=== PATIENT | female | born 1955 | race Caucasian/White ===

== ENCOUNTER 2016-11-05 11:17 | Inpatient (IN) | payer OTHER ==
[~2016-11-05] VITALS: Ht 170.1 cm; Wt 155.7 kg
--- NOTE | ~2016-11-05 | ST ---
[place], [place] EXERCISE STRESS TEST REPORT NAME: SANTO LOMAS [facility] #: [id number] UNIT #: [id number] ROOM: 405 DOCTOR: BETSEY GOODMAN,MARIA FERNANDA BIRTHDATE: [birth year] DOS: 11/06/2016 REASON FOR TEST: Evaluation of chest pain, palpitations. PHYSICAL EXAMINATION: NECK: Supple. LUNGS: Clear anteriorly. HEART: Regular rhythm. PROTOCOL: Lexiscan protocol. Maximum heart rate 99. Peak blood pressure 142/78. SYMPTOMS: The patient is chest pain free. EKG: Resting EKG showed her old anterior OR. Stress EKG showed no ischemia, no arrhythmias. CONCLUSION: Clinically, the patient is chest pain free. EKG, no ischemia, no arrhythmias. POST-STRESS COMPLICATIONS: None. The patient received total of 0.4 mg Lexiscan. MARIA FERNANDA LEGGETT MD CM:STRESS:EXERCISE STRESS TEST REPORT [id number] MARIA FERNANDA LEGGETT MD
[~2016-11-05 11:17] MED LIST: ANTIVERT25 MG PO; ASPIRIN BUFFER325 MG PO; ASPIRIN162 MG PO; ATIVAN0.5 MG PO; CIPROFLOXACIN500 MG PO; DARVOCET N 1001 TAB PO; GLYBURIDE5 MG PO; IBU-8800 MG PO; INDERAL LA120 MG PO; INVOKANA100 M1 PO; KLONOPIN2 MG PO; LEVOFLOXACIN500 MG PO; LOPRESSOR50 M1 PO; Lopressor25 MG PO; METFORMIN1000 MG PO; PROTONIX40 MG PO; XANAX0.25 MG PO; ZANTAC150 MG PO; ZOVIRAX400 MG PO; Zofran4 MG PO
[2016-11-05 11:33] VITALS: BP 131/56
[2016-11-05 12:03] LABS: BASO % 0.3 % (0.0-1.0); EOS # 0.1 10*3/uL (0.0-0.4); EOS % 1.2 % (1.0-4.0); HEMATOCRIT 43.7 % (37.0-47.0); HEMOGLOBIN 14.1 g/dl (12.0-16.0); LYMPH # 2.2 10*3/uL (1.3-4.4); LYMPH % 25.5 % (27.0-41.0); MEAN CELL VOLUME 93.6 fl (81.0-99.0); MEAN CORPUSCULAR HGB 30.2 pg (27.0-31.0); MEAN CORPUSCULAR HGB CONC 32.3 g/dl (33.0-37.0); MEAN PLATELET VOLUME 11.6 fl (9.6-12.3); MONO # 0.4 10*3/uL (0.1-1.0); MONO % 5.1 % (3.0-9.0); NEUT # 5.9 10*3/uL (2.3-7.9); NEUT % 67.4 % (47.0-73.0); PLATELET COUNT AUTOMATED 197 10*3/uL (130-400); RED BLOOD COUNT 4.67 10*6/uL (4.10-5.10); RED CELL DISTRI WIDTH 13.2 % (0-14.5); WHITE BLOOD COUNT 8.7 10*3/uL (4.8-10.8)
[2016-11-05 12:12] LABS: INTERNATIONAL NORM RATIO 0.9 (2.0-3.5)
[2016-11-05 12:18] VITALS: BP 115/69
[2016-11-05 12:19] LABS: ALBUMIN 3.5 gm/dl (3.1-4.5); ALKALINE PHOSPHATASE 54 U/L (45-117); BILIRUBIN, TOTAL 0.4 mg/dl (0.2-1.0); BUN 13 mg/dl (7-24); C-REACTIVE PROTEIN 0.29 MG/DL (0-0.3); CARBON DIOXIDE 28 mmol/L (21-32); CHLORIDE 107 mmol/L (98-107); CPK 45 U/L (26-192); EST GLOM FILT AFRICAN AMERICAN > 60 ml/min; GLUCOSE 263 mg/dL (65-99); MAGNESIUM 1.7 mg/dL (1.5-2.1); POTASSIUM 4.5 mmol/L (3.5-5.1); SGOT/AST 10 IU/L (3-35); SGPT/ALT 18 U/L (12-78); SODIUM 143 mmol/L (136-145); TOTAL PROTEIN 6.9 gm/dL (6.4-8.2)
[2016-11-05 12:20] LABS: TROPONIN I < 0.015 ng/ml (<0.045)
[2016-11-05] MEDS ORDERED: PLAVIX75 M1 PO (13:08)
[2016-11-05] MEDS ORDERED: LISINOPRIL5 MG PO (13:08)
[2016-11-05] MEDS ORDERED: LIPITOR40 MG PO (13:09)
[2016-11-05 13:15] VITALS: BP 138/79
[2016-11-05] MEDS ORDERED: LOPRESSOR25 MG PO (13:48)
[2016-11-05] MEDS ORDERED: CYCLOBENZAPRINE10 MG PO (13:56)
[2016-11-05 16:00] VITALS: BP 131/59
[2016-11-05 18:28] LABS: CKMB 1.3 ng/ml (0.5-3.6); CPK 36 U/L (26-192)
[2016-11-05 18:29] LABS: TROPONIN I < 0.015 ng/ml (<0.045)
[2016-11-05 20:00] VITALS: BP 115/50
[2016-11-06] VITALS: BP 122/57
[2016-11-06 00:27] LABS: CKMB 1.1 ng/ml (0.5-3.6); CPK 34 U/L (26-192)
[2016-11-06 00:37] LABS: TROPONIN I < 0.015 ng/ml (<0.045)
[2016-11-06 06:38] LABS: BASO % 0.5 % (0.0-1.0); EOS # 0.1 10*3/uL (0.0-0.4); EOS % 1.2 % (1.0-4.0); HEMATOCRIT 38.7 % (37.0-47.0); HEMOGLOBIN 12.5 g/dl (12.0-16.0); LYMPH # 2.3 10*3/uL (1.3-4.4); LYMPH % 35.9 % (27.0-41.0); MEAN CELL VOLUME 92.6 fl (81.0-99.0); MEAN CORPUSCULAR HGB 29.9 pg (27.0-31.0); MEAN CORPUSCULAR HGB CONC 32.3 g/dl (33.0-37.0); MONO # 0.4 10*3/uL (0.1-1.0); MONO % 5.7 % (3.0-9.0); NEUT # 3.7 10*3/uL (2.3-7.9); NEUT % 56.4 % (47.0-73.0); PLATELET COUNT AUTOMATED 147 10*3/uL (130-400); RED BLOOD COUNT 4.18 10*6/uL (4.10-5.10); RED CELL DISTRI WIDTH 13.2 % (0-14.5); WHITE BLOOD COUNT 6.5 10*3/uL (4.8-10.8)
[2016-11-06 06:46] LABS: CKMB 1.1 ng/ml (0.5-3.6); CPK 32 U/L (26-192)
[2016-11-06 06:59] LABS: TROPONIN I < 0.015 ng/ml (<0.045)
[2016-11-06 07:07] LABS: BUN 11 mg/dl (7-24); CARBON DIOXIDE 26 mmol/L (21-32); CHLORIDE 109 mmol/L (98-107); EST GLOM FILT AFRICAN AMERICAN > 60 ml/min; GLUCOSE 133 mg/dL (65-99); MAGNESIUM 1.7 mg/dL (1.5-2.1); POTASSIUM 4.3 mmol/L (3.5-5.1); SODIUM 144 mmol/L (136-145)
[2016-11-06 07:19] LABS: CHOLESTEROL 108 mg/dL (<200); FREE T4 1.18 ng/dl (0.76-1.46); HDL CHOLESTEROL 39 mg/dl (40-60); LDL CHOLESTEROL 43 mg/dL (9-159); PHOSPHOROUS 3.7 mg/dL (2.5-4.9); TRIGLYCERIDES 131 mg/dl (<150); VLDL CHOLESTEROL 26 mg/dL (6-40)
[2016-11-06 08:00] VITALS: BP 136/76; BP 138/78
[2016-11-06 12:00] VITALS: BP 134/78
== END 2016-11-06 15:47 | disposition home or self-care (01) | DRG 149 ==
LOC: ED 11:17 → EDHOLD 12:32 → 4E 12:32
PROVIDERS: Student in an Organized Health Care Education/Training Program
PROC: 4A02XM4 Measurement of Cardiac Total Activity, External Approach (ICD-10-PCS; principal; 2016-11-06)
PROC: 3E073KZ Introduction of Other Diagnostic Substance into Coronary Artery, Percutaneous Approach (ICD-10-PCS; 2016-11-06)
DX: R42 Dizziness and giddiness (principal); E11.65 Type 2 diabetes mellitus with hyperglycemia; I10 Essential (primary) hypertension; I25.2 Old myocardial infarction; K21.9 Gastro-esophageal reflux disease without esophagitis; R00.0 Tachycardia, unspecified; R00.2 Palpitations; I25.10 Atherosclerotic heart disease of native coronary artery without angina pectoris; Z95.5 Presence of coronary angioplasty implant and graft; Z85.828 Personal history of other malignant neoplasm of skin; Z98.891 History of uterine scar from previous surgery; Z82.49 Family history of ischemic heart disease and other diseases of the circulatory system; Z88.0 Allergy status to penicillin; Z88.1 Allergy status to other antibiotic agents; Z79.82 Long term (current) use of aspirin; Z79.899 Other long term (current) drug therapy; Z79.84 Long term (current) use of oral hypoglycemic drugs

== ENCOUNTER → 2017-02-19 | Outpatient (CLI) | payer OTHER ==
[~2017-02-19] MED LIST changes: +CYCLOBENZAPRINE10 MG PO; +LIPITOR40 MG PO; +LISINOPRIL5 MG PO; +LOPRESSOR25 MG PO; +PLAVIX75 M1 PO
[2017-02-19 12:40] LABS: BASO % 0.4 % (0.0-1.0); EOS # 0.1 10*3/uL (0.0-0.4); EOS % 1.1 % (1.0-4.0); HEMATOCRIT 36.8 % (37.0-47.0); HEMOGLOBIN 12.1 g/dl (12.0-16.0); LYMPH # 2.6 10*3/uL (1.3-4.4); MEAN CELL VOLUME 92.7 fl (81.0-99.0); MEAN CORPUSCULAR HGB 30.5 pg (27.0-31.0); MEAN CORPUSCULAR HGB CONC 32.9 g/dl (33.0-37.0); MEAN PLATELET VOLUME 12.2 fl (9.6-12.3); MONO # 0.4 10*3/uL (0.1-1.0); MONO % 5.5 % (3.0-9.0); NEUT # 3.9 10*3/uL (2.3-7.9); NEUT % 55.9 % (47.0-73.0); PLATELET COUNT AUTOMATED 169 10*3/uL (130-400); RED BLOOD COUNT 3.97 10*6/uL (4.10-5.10); RED CELL DISTRI WIDTH 12.7 % (0-14.5)
[2017-02-19 13:01] LABS: ALBUMIN 3.5 gm/dl (3.1-4.5); ALKALINE PHOSPHATASE 47 U/L (45-117); BILIRUBIN, TOTAL 0.5 mg/dl (0.2-1.0); BUN 23 mg/dl (7-24); CARBON DIOXIDE 26 mmol/L (21-32); CHLORIDE 105 mmol/L (98-107); CHOLESTEROL 110 mg/dL (<200); EST GLOM FILT AFRICAN AMERICAN > 60 ml/min; GLUCOSE 157 mg/dL (65-99); HDL CHOLESTEROL 36 mg/dl (40-60); LDL CHOLESTEROL 41 mg/dL (9-159); POTASSIUM 4.4 mmol/L (3.5-5.1); SGOT/AST 13 IU/L (3-35); SGPT/ALT 20 U/L (12-78); SODIUM 141 mmol/L (136-145); TOTAL PROTEIN 6.7 gm/dL (6.4-8.2); TRIGLYCERIDES 163 mg/dl (<150); VLDL CHOLESTEROL 33 mg/dL (6-40)
== END | disposition home or self-care (01) ==
LOC: LAB 11:51
PROVIDERS: Internal Medicine
DX: E11.9 Type 2 diabetes mellitus without complications (principal); E78.2 Mixed hyperlipidemia; R79.89 Other specified abnormal findings of blood chemistry

== ENCOUNTER 2017-03-13 18:08 | Inpatient (IN) | payer OTHER ==
[~2017-03-13] VITALS: Ht 167.6 cm; Wt 162.1 kg
--- NOTE | ~2017-03-13 | CON ---
[place], [place] REPORT OF CONSULTATION NAME: SANTO LOMAS [facility] #: [id number] UNIT #: [id number] ROOM: 507 DOCTOR: ORIN CHAMORRO MD BIRTHDATE: [birth year] DOS: 03/14/2017 REASON FOR CONSULTATION: Chest pain. HISTORY OF PRESENT ILLNESS: The patient is a 61-year-old woman who does have a history of coronary artery disease. She presented with atypical back pain and weakness in May 2017. She was found to have an acute ST elevation anterior wall myocardial infarction. She was taken to the catheterization laboratory on 05/25/2016, where she was found to have a 20% distal left main stenosis, a 50% ostial LAD stenosis, followed by 90% mid LAD stenosis. The circumflex had moderate ostial disease. The right coronary artery was a dominant vessel with moderate diffuse disease. The ejection fraction was 45% with anteroapical hypokinesis. The LAD was treated with a 3.0 x 33 mm Alpine drug-eluting stent. The patient presented again to the hospital in October 2016 with palpitations. A Lexiscan stress test at that time showed an ejection fraction of 65% with a partially reversible anterior and anteroseptal defect. The patient was felt to be best treated medically. She did well until recently. She states that there was some mix up with her medications at the pharmacy. She receives her medications in prepackaged blister packs. She states that several of the packages were missing, isosorbide mononitrate. In addition, she is a professional crafter. She was receiving a lot of orders for [employer] and was working 12 hours a day for several weeks hunched over a [employer] table creating these projects. She states that 3 days ago, while lying in bed, she developed an aching sensation in the center of her chest, in the middle of her back. There was no associated diaphoresis or shortness of breath at that time; however, subsequently she has felt lightheaded and has had some dyspnea off and on. She became frightened and came to the Emergency Room. Her electrocardiogram showed no acute changes and her cardiac troponin levels are normal. We were asked to advice regarding her management. PAST MEDICAL HISTORY: Includes the followin. Obesity. 2. Type 2 diabetes mellitus. 3. Essential hypertension. 4. Gastroesophageal reflux disease. 5. 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 The patient states that a wide excision was done and she does not have any measurable disease at this time. She is being followed closely for this. 6. The patient recently was documented as having B12 deficiency anemia and has been receiving B12 replacement lately. 7. Coronary artery disease. The patient presented with acute anterior wall myocardial infarction on 05/25/2016. She was taken emergently to the [facility] where catheterization showed a 20% distal left main stenosis, a 50% ostial LAD stenosis with a 90% mid LAD stenosis. Circumflex had moderate ostial disease. The right coronary artery was a dominant vessel with moderate diffuse disease and a 45% ejection fraction with anteroapical hypokinesis. She was managed with a 3.0 x 33 mm Alpine drug-eluting stent to the LAD. 8. Pharmacologic stress test, 11/06/2016, ejection fraction 65%, partially [place], [place] REPORT OF CONSULTATION [facility] [id number] UNIT #: [id number] ROOM: 507 DOCTOR: ORIN CHAMORRO MD BIRTHDATE: [birth year] reversible defect in the anterior and anteroseptal magana. REVIEW OF SYSTEMS: The patient denies diplopia or loss of vision. She denies focal weakness or syncope. She has had some mild lightheadedness. She denies orthopnea or PND. She has noticed a recent 5-10 pound weight gain and she states that her hands and feet have been "puffy." She denies nausea or vomiting. She has had some dyspnea. She has had some lightheadedness. She denies any vomiting or hemoptysis. She has not had any hematemesis. She denies any change in bowel or bladder habits and denies blood from her stools or urine. She has had some mild swelling in her hands and feet. The remainder of the review of systems is negative except as noted above. MEDICATIONS: Prior to admission: Aspirin 325 mg daily, Lipitor 40 mg at bedtime, cetirizine 10 mg at bedtime, clonazepam 0.5 mg b.i.d., clopidogrel 75 mg daily, cyclobenzaprine 10 mg t.i.d., glyburide 5 mg daily, hydrochlorothiazide 12.5 mg daily, isosorbide mononitrate 30 mg daily, losartan 100 mg daily, metformin 1000 mg twice a day, metoprolol 25 daily and 50 mg b.i.d. ALLERGIES: The patient lists allergies to PENICILLINS, CLARITHROMYCIN and LEVOFLOXACIN. FAMILY HISTORY: The patient's father at age 78 from heart attack. Her mother has a history of coronary artery disease as well and had a stent in her 60s. She is also . SOCIAL HISTORY: The patient does not smoke or consume alcohol. PHYSICAL EXAMINATION: GENERAL: The patient is an obese white female who is awake, alert and oriented. VITAL SIGNS: Pulse is 57 and regular, blood pressure is 134/54. She is afebrile. She weighs 162.1 kilograms with a body mass index of 57.7. HEENT: Normocephalic, atraumatic. Extraocular muscles are intact. Sclerae are clear. Pupils are equal, round and reactive to light. The oral mucosa is moist. Tongue is midline. NECK: Supple. She has no jugular distention. Carotids are full. I heard no bruits. She had no neck or supraclavicular masses. No thyromegaly. LUNGS: Respirations are unlabored. Her chest is clear to auscultation and percussion. She had no presacral edema or chest wall tenderness. HEART: Had a regular rhythm. She had a fourth heart sound, but no third heart sound. The PMI was not displaced. She had no precordial heave, lift or thrill. ABDOMEN: Obese, but otherwise benign, without masses, organomegaly or bruits. I was able to reproduce some of her pains by palpation of her epigastrium and lower sternum. EXTREMITIES: Showed no clubbing, cyanosis or pitting edema. Peripheral pulses were diminished, but palpable in the feet. LABORATORY DATA: Electrocardiogram on admission showed sinus rhythm with an old anterior wall myocardial infarction. Serial troponin levels have been normal. [place], [place] REPORT OF CONSULTATION [facility] [id number] UNIT #: [id number] ROOM: 507 DOCTOR: ORIN CHAMORRO MD BIRTHDATE: [birth year] IMPRESSION: 1. Atypical chest pain. It is most likely that her current pains are musculoskeletal in origin and are brought on by repetitive strain injury while she is doing her crafting. 2. History of coronary artery disease, status post acute ST elevation myocardial infarction, 05/25/2016. The patient does have some residual disease, which complicates our assessment of her current pains. 3. Type 2 diabetes mellitus. 4. Essential hypertension. 5. Morbid obesity. 6. History of B12 deficient anemia. 7. History of melanoma resected from her right calf. PLAN: Her current symptoms appear to be musculoskeletal in origin. I would resume her previous medications and continue to observe her clinically. Should her pains persist and see more exertional in origin, then a repeat catheterization would be appropriate. Repeating her stress test at this time would not be very beneficial since she recently did have a stress test that does shows some areas of ischemia, which we are managing medically thus far. [facility] and I thank the hospitalist physicians for asking our advice regarding her care. ORIN CHAMORRO MD CM:CONSTR:REPORT OF CONSULTATION 1024 03/15/17 0033 interface
[2017-03-13 18:27] LABS: BASO % 0.5 % (0.0-1.0); EOS # 0.2 10*3/uL (0.0-0.4); HEMATOCRIT 36.7 % (37.0-47.0); HEMOGLOBIN 11.8 g/dl (12.0-16.0); LYMPH # 2.6 10*3/uL (1.3-4.4); LYMPH % 34.6 % (27.0-41.0); MEAN CELL VOLUME 93.9 fl (81.0-99.0); MEAN CORPUSCULAR HGB 30.2 pg (27.0-31.0); MEAN CORPUSCULAR HGB CONC 32.2 g/dl (33.0-37.0); MEAN PLATELET VOLUME 11.7 fl (9.6-12.3); MONO # 0.5 10*3/uL (0.1-1.0); MONO % 6.6 % (3.0-9.0); NEUT # 4.3 10*3/uL (2.3-7.9); NEUT % 55.9 % (47.0-73.0); PLATELET COUNT AUTOMATED 176 10*3/uL (130-400); RED BLOOD COUNT 3.91 10*6/uL (4.10-5.10); RED CELL DISTRI WIDTH 12.9 % (0-14.5); WHITE BLOOD COUNT 7.6 10*3/uL (4.8-10.8)
[2017-03-13 18:29] VITALS: BP 130/50
[2017-03-13 18:37] LABS: ACT PARTIAL THROMBO TIME 25.9 SECONDS (20.8-31.5); INTERNATIONAL NORM RATIO 0.9 (2.0-3.5)
[2017-03-13 18:43] LABS: ALBUMIN 3.5 gm/dl (3.1-4.5); ALKALINE PHOSPHATASE 58 U/L (45-117); BUN 13 mg/dl (7-24); CHLORIDE 107 mmol/L (98-107); CREATININE 0.94 mg/dL (0.55-1.02); MAGNESIUM 1.8 mg/dL (1.5-2.1); POTASSIUM 4.3 mmol/L (3.5-5.1); SGOT/AST 16 IU/L (3-35); SGPT/ALT 21 U/L (12-78); SODIUM 142 mmol/L (136-145)
[2017-03-13 18:44] LABS: TROPONIN I < 0.015 ng/ml (<0.045)
[2017-03-13 19:03] VITALS: BP 112/60
[2017-03-13 20:45] VITALS: BP 127/50
[2017-03-13] MEDS ORDERED: IMDUR SA30 MG PO (21:02)
[2017-03-13] MEDS ORDERED: CLONAZEPAM0.5 M2 PO (21:02)
[2017-03-13] MEDS ORDERED: LOSARTAN POTASS50 M1 PO (21:02)
[2017-03-13] MEDS ORDERED: ALL DAY ALLERGY10 MG PO (21:03)
[2017-03-13] MEDS ORDERED: HYDR25T PO (21:04)
[2017-03-14] VITALS: BP 137/45
[2017-03-14 06:11] LABS: BASO % 0.5 % (0.0-1.0); EOS # 0.1 10*3/uL (0.0-0.4); EOS % 1.8 % (1.0-4.0); HEMATOCRIT 34.5 % (37.0-47.0); HEMOGLOBIN 11.2 g/dl (12.0-16.0); LYMPH # 2.7 10*3/uL (1.3-4.4); LYMPH % 42.4 % (27.0-41.0); MEAN CELL VOLUME 93.5 fl (81.0-99.0); MEAN CORPUSCULAR HGB 30.4 pg (27.0-31.0); MEAN CORPUSCULAR HGB CONC 32.5 g/dl (33.0-37.0); MEAN PLATELET VOLUME 11.8 fl (9.6-12.3); MONO # 0.4 10*3/uL (0.1-1.0); MONO % 5.6 % (3.0-9.0); NEUT # 3.1 10*3/uL (2.3-7.9); NEUT % 49.5 % (47.0-73.0); PLATELET COUNT AUTOMATED 142 10*3/uL (130-400); RED BLOOD COUNT 3.69 10*6/uL (4.10-5.10); RED CELL DISTRI WIDTH 12.9 % (0-14.5); WHITE BLOOD COUNT 6.3 10*3/uL (4.8-10.8)
[2017-03-14 06:39] LABS: BUN 13 mg/dl (7-24); CHLORIDE 111 mmol/L (98-107); MAGNESIUM 1.7 mg/dL (1.5-2.1); POTASSIUM 3.9 mmol/L (3.5-5.1); SODIUM 144 mmol/L (136-145)
[2017-03-14 06:42] LABS: ACT PARTIAL THROMBO TIME 26.7 SECONDS (20.8-31.5)
[2017-03-14 06:50] LABS: CREATININE 0.86 mg/dL (0.55-1.02); PHOSPHOROUS 3.4 mg/dL (2.5-4.9)
[2017-03-14 07:39] LABS: VITAMIN D, 25-HYDROXY 14.9 ng/mL (30-100)
[2017-03-14 08:00] VITALS: BP 134/54
[2017-03-14] MEDS ORDERED: VITAMIN D31000 UNI1 PO (11:30)
[2017-03-14 12:00] VITALS: BP 129/68
== END 2017-03-14 12:00 | disposition home or self-care (01) | DRG 313 ==
LOC: ED 18:08 → 5E 20:07 → EDHOLD 20:07 → 5E 20:14
PROVIDERS: Internal Medicine; ADMIT Emergency Medicine
DX: R07.89 Other chest pain (principal); I25.2 Old myocardial infarction; E11.65 Type 2 diabetes mellitus with hyperglycemia; I10 Essential (primary) hypertension; E44.1 Mild protein-calorie malnutrition; Z68.43 Body mass index [BMI] 50.0-59.9, adult; I25.118 Atherosclerotic heart disease of native coronary artery with other forms of angina pectoris; K21.9 Gastro-esophageal reflux disease without esophagitis; D64.9 Anemia, unspecified; E55.9 Vitamin D deficiency, unspecified; E66.01 Morbid (severe) obesity due to excess calories; Z95.5 Presence of coronary angioplasty implant and graft; Z85.820 Personal history of malignant melanoma of skin; Z79.4 Long term (current) use of insulin; Z79.899 Other long term (current) drug therapy; Z88.0 Allergy status to penicillin; Z88.1 Allergy status to other antibiotic agents; Z82.49 Family history of ischemic heart disease and other diseases of the circulatory system

== ENCOUNTER 2017-12-07 19:10 | Emergency (ER) | payer OTHER ==
[~2017-12-07] VITALS: Ht 170.1 cm; Wt 158.8 kg
[~2017-12-07 19:10] MED LIST changes: +ALL DAY ALLERGY10 MG PO; +CLONAZEPAM0.5 M2 PO; +HYDR25T PO; +IMDUR SA30 MG PO; +LOSARTAN POTASS50 M1 PO; +VITAMIN D31000 UNI1 PO
[2017-12-07 19:50] LABS: BASO % 0.6 % (0.0-1.0); EOS # 0.2 10*3/uL (0.0-0.4); EOS % 2.5 % (1.0-4.0); HEMATOCRIT 37.3 % (37.0-47.0); HEMOGLOBIN 12.1 g/dl (12.0-16.0); LYMPH # 2.3 10*3/uL (1.3-4.4); LYMPH % 32.2 % (27.0-41.0); MEAN CELL VOLUME 93.5 fl (81.0-99.0); MEAN CORPUSCULAR HGB 30.3 pg (27.0-31.0); MEAN CORPUSCULAR HGB CONC 32.4 g/dl (33.0-37.0); MONO # 0.5 10*3/uL (0.1-1.0); MONO % 6.4 % (3.0-9.0); NEUT # 4.1 10*3/uL (2.3-7.9); PLATELET COUNT AUTOMATED 182 10*3/uL (130-400); RED BLOOD COUNT 3.99 10*6/uL (4.10-5.10); RED CELL DISTRI WIDTH 12.9 % (0-14.5); WHITE BLOOD COUNT 7.1 10*3/uL (4.8-10.8)
[2017-12-07 20:01] LABS: ACT PARTIAL THROMBO TIME 24.6 SECONDS (20.8-31.5)
[2017-12-07 20:04] LABS: ALBUMIN 3.6 gm/dl (3.1-4.5); ALKALINE PHOSPHATASE 50 U/L (45-117); BUN 17 mg/dl (7-24); CHLORIDE 105 mmol/L (98-107); CREATININE 1.23 mg/dL (0.55-1.02); LIPASE 117 U/L (73-393); POTASSIUM 4.3 mmol/L (3.5-5.1); SGOT/AST 26 IU/L (3-35); SGPT/ALT 31 U/L (12-78); SODIUM 141 mmol/L (136-145); TOTAL PROTEIN 6.8 gm/dL (6.4-8.2); TROPONIN I < 0.015 ng/ml (<0.045)
[2017-12-07 20:08] LABS: BILIRUBIN NEGATIVE (NEGATIVE); BLOOD NEGATIVE (NEGATIVE); CLARITY CLEAR (CLEAR); COLOR YELLOW (YELLOW); GLUCOSE NEGATIVE (NEGATIVE); KETONE TRACE (NEGATIVE); LEUKO ESTERASE NEGATIVE (NEGATIVE); NITRITE NEGATIVE (NEGATIVE); PH 5.5 (5.0-9.0); UROBILINOGEN 0.2 E.U./dl (0.2-1.0)
[2017-12-07 20:20] LABS: BACTERIA 2+; MUCOUS 1+
[2017-12-07 20:21] LABS: EPITHELIAL CELLS 41-50
[2017-12-07] MEDS ORDERED: CYCLOBENZAPRINE5 M3 PO (20:44)
== END 2017-12-07 20:49 | disposition home or self-care (01) ==
LOC: ED 19:10
PROVIDERS: Nurse Practitioner Family
DX: S29.012A Strain of muscle and tendon of back wall of thorax, initial encounter (principal); I10 Essential (primary) hypertension; E11.9 Type 2 diabetes mellitus without complications; K21.9 Gastro-esophageal reflux disease without esophagitis; I25.10 Atherosclerotic heart disease of native coronary artery without angina pectoris; I25.2 Old myocardial infarction; E66.01 Morbid (severe) obesity due to excess calories; Z88.1 Allergy status to other antibiotic agents; Z68.43 Body mass index [BMI] 50.0-59.9, adult; Z88.8 Allergy status to other drugs, medicaments and biological substances; Z98.51 Tubal ligation status; Z98.890 Other specified postprocedural states; Z88.0 Allergy status to penicillin; Z79.899 Other long term (current) drug therapy; X58.XXXA Exposure to other specified factors, initial encounter; Y93.89 Activity, other specified; Y92.89 Other specified places as the place of occurrence of the external cause; Y99.8 Other external cause status

== ENCOUNTER → 2018-02-04 | Outpatient (CLI) | payer OTHER ==
[~2018-02-04] MED LIST changes: +CYCLOBENZAPRINE5 M3 PO; +PEPCID AC20 MG PO; +ROBAXIN500 M1 PO; +VIT D PO
[2018-02-04 10:34] LABS: BASO % 0.4 % (0.0-1.0); EOS # 0.1 10*3/uL (0.0-0.4); EOS % 1.9 % (1.0-4.0); HEMATOCRIT 37.8 % (37.0-47.0); HEMOGLOBIN 12.1 g/dl (12.0-16.0); LYMPH # 2.4 10*3/uL (1.3-4.4); LYMPH % 33.3 % (27.0-41.0); MEAN CELL VOLUME 94.3 fl (81.0-99.0); MEAN CORPUSCULAR HGB 30.2 pg (27.0-31.0); MEAN PLATELET VOLUME 11.9 fl (9.6-12.3); MONO # 0.4 10*3/uL (0.1-1.0); MONO % 5.8 % (3.0-9.0); NEUT # 4.2 10*3/uL (2.3-7.9); NEUT % 58.3 % (47.0-73.0); PLATELET COUNT AUTOMATED 174 10*3/uL (130-400); RED BLOOD COUNT 4.01 10*6/uL (4.10-5.10); RED CELL DISTRI WIDTH 13.2 % (0-14.5); WHITE BLOOD COUNT 7.2 10*3/uL (4.8-10.8)
[2018-02-04 10:49] LABS: ALBUMIN 3.6 gm/dl (3.1-4.5); CREATININE 1.29 mg/dL (0.55-1.02); POTASSIUM 4.3 mmol/L (3.5-5.1); TOTAL PROTEIN 6.9 gm/dL (6.4-8.2)
[2018-02-04 10:56] LABS: THYROID STIM HORMONE (HS) 3.16 uIU/ml (0.358-4.75)
[2018-02-04 11:22] LABS: VITAMIN D, 25-HYDROXY 33.3 ng/mL (30-100)
== END | disposition home or self-care (01) ==
LOC: LAB 09:59
PROVIDERS: Internal Medicine
DX: E11.9 Type 2 diabetes mellitus without complications (principal); E55.9 Vitamin D deficiency, unspecified; E78.2 Mixed hyperlipidemia; E53.8 Deficiency of other specified B group vitamins

== ENCOUNTER 2018-02-08 17:12 | Emergency (ER) | payer OTHER ==
[~2018-02-08] VITALS: Ht 170.1 cm; Wt 162.4 kg
[~2018-02-08 17:12] MED LIST changes: -PEPCID AC20 MG PO; -ROBAXIN500 M1 PO; -VIT D PO
[2018-02-08 17:44] LABS: BASO % 0.4 % (0.0-1.0); EOS # 0.2 10*3/uL (0.0-0.4); EOS % 2.1 % (1.0-4.0); HEMATOCRIT 37.3 % (37.0-47.0); HEMOGLOBIN 12.2 g/dl (12.0-16.0); LYMPH # 2.8 10*3/uL (1.3-4.4); LYMPH % 33.5 % (27.0-41.0); MEAN CORPUSCULAR HGB 30.4 pg (27.0-31.0); MEAN CORPUSCULAR HGB CONC 32.7 g/dl (33.0-37.0); MEAN PLATELET VOLUME 11.7 fl (9.6-12.3); MONO # 0.5 10*3/uL (0.1-1.0); MONO % 6.3 % (3.0-9.0); NEUT # 4.7 10*3/uL (2.3-7.9); NEUT % 57.5 % (47.0-73.0); PLATELET COUNT AUTOMATED 190 10*3/uL (130-400); RED BLOOD COUNT 4.01 10*6/uL (4.10-5.10); RED CELL DISTRI WIDTH 13.1 % (0-14.5); WHITE BLOOD COUNT 8.2 10*3/uL (4.8-10.8)
[2018-02-08 17:56] LABS: ACT PARTIAL THROMBO TIME 24.5 SECONDS (20.8-31.5); CREATININE 1.46 mg/dL (0.55-1.02); POTASSIUM 3.9 mmol/L (3.5-5.1)
[2018-02-08] MEDS ORDERED: ROBAXIN500 M1 PO (19:16)
[2018-02-11] MEDS ORDERED: PEPCID AC20 MG PO (14:31)
[2018-02-11] MEDS ORDERED: VIT D PO (14:32)
== END 2018-02-08 19:30 | disposition home or self-care (01) ==
LOC: ED 17:12
PROVIDERS: Physician Assistant
DX: M79.662 Pain in left lower leg (principal); R06.00 Dyspnea, unspecified; E11.9 Type 2 diabetes mellitus without complications; Z88.0 Allergy status to penicillin; Z88.1 Allergy status to other antibiotic agents; Z88.8 Allergy status to other drugs, medicaments and biological substances; Z79.899 Other long term (current) drug therapy

== ENCOUNTER → 2018-02-11 | Outpatient (CLI) | payer OTHER ==
[~2018-02-11] MED LIST changes: +PEPCID AC20 MG PO; +ROBAXIN500 M1 PO; +VIT D PO
--- NOTE | ~2018-02-11 | ST ---
[place], [place] EXERCISE STRESS TEST REPORT NAME: SANTO LOMAS [facility] #: [id number] UNIT #: [id number] ROOM: DOCTOR: ORIN CHAMORRO MD BIRTHDATE: [birth year] DOS: 02/11/2018 PHARMACOLOGIC STRESS TEST INDICATIONS: History of coronary artery disease, fatigue, dyspnea with exertion. PROCEDURE: The patient received a rapid infusion of regadenoson 0.4 mg intravenously followed by a saline flush. She felt lightheaded and dyspneic, but had no chest pain. Her resting heart rate of 92 dimitri to 111. The resting blood pressure 134/78 dimitri to 144/66. She had no diagnostic ST and T or T-wave changes, although she did have nonspecific T-wave changes before the beginning of the test. Forty seconds after the infusion of regadenoson, she was given radionuclide intravenously. IMPRESSION: 1. Well-tolerated infusion of regadenoson. 2. Radionuclide administered. Please see the separate imaging report for further details of the patient's stress test results. ORIN CHAMORRO MD CM:STRESS:EXERCISE STRESS TEST REPORT [id number] [id number] ORIN CHAMORRO MD
== END | disposition home or self-care (01) ==
LOC: CARD 02:43
DX: I21.02 ST elevation (STEMI) myocardial infarction involving left anterior descending coronary artery (principal); R06.09 Other forms of dyspnea; R07.89 Other chest pain; R53.81 Other malaise; R94.39 Abnormal result of other cardiovascular function study; I25.10 Atherosclerotic heart disease of native coronary artery without angina pectoris

== ENCOUNTER → 2018-02-25 | Outpatient (CLI) | payer OTHER | END | disposition home or self-care (01) | LOC: MAMMO 09:49 | DX: Z12.31 Encounter for screening mammogram for malignant neoplasm of breast (principal) ==

== ENCOUNTER → 2018-02-26 | Outpatient (CLI) | payer OTHER | END | disposition home or self-care (01) | LOC: MAMMO 12:48 | DX: R92.8 Other abnormal and inconclusive findings on diagnostic imaging of breast (principal) ==

== ENCOUNTER 2018-03-31 19:58 | Inpatient (IN) | payer OTHER ==
[~2018-03-31] VITALS: Ht 170.1 cm; Wt 163.0 kg
--- NOTE | ~2018-03-31 | EKG ---
[place], [place] ELECTROCARDIOGRAM REPORT NAME: SANTO LOMAS UNIT #: [id number] ROOM: 506 DOCTOR: EDDY DRAFT REPORT BIRTHDATE: [birth year] [facility] Test Date: 2018-03-31 Test Time: 20:24:09 Pat Name: SANTO LOMAS Department: Room: 506 Gender: F Glass Inspector: : 1955 Requested By: ANEL OLIVERA Order Number: [id number] Reading MD: Dominique Khan MD Measurements Intervals [place] Rate: 87 P: 6 IA: 191 QRS: -17 QRSD: 83 T: -5 QT: 358 QTc: 431 Interpretive Statements Sinus rhythm Left ventricular hypertrophy Inferior infarct, old Anterior infarct, old Baseline wander in lead(s) V4 Electronically Signed On 04-01-2018 13:44:56 PDT by Dominique Khan MD CM:EKGRPT:ELECTROCARDIOGRAM REPORT 23 1344 ANEL DAVIS DRAFT REPORT ANEL OLIVERA DO
--- NOTE | ~2018-03-31 | EKG ---
[place], [place] ELECTROCARDIOGRAM REPORT NAME: SANTO LOMAS UNIT #: [id number] ROOM: 506 DOCTOR: EDDY DRAFT REPORT BIRTHDATE: [birth year] [facility] Test Date: 2018-04-01 Test Time: 01:47:37 Pat Name: SANTO LOMAS Department: Room: 506 Gender: F Test Desk Trouble Locator: BALDEMAR : 1955 Requested By: ANEL OLIVERA Order Number: [id number] Reading MD: Dominique Khan MD Measurements Intervals [place] Rate: 88 P: 0 LA: 221 QRS: -2 QRSD: 90 T: -4 QT: 392 QTc: 475 Interpretive Statements Sinus rhythm Borderline prolonged [place] interval Anterior infarct, old Baseline wander in lead(s) I,III,aVL,V1,V2,V3,V4,V5,V6 Electronically Signed On 04-01-2018 13:59:09 PDT by Dominique Khan MD CM:EKGRPT:ELECTROCARDIOGRAM REPORT [id number] 1359 ANEL DAVIS DRAFT REPORT ANEL OLIVERA DO
--- NOTE | ~2018-03-31 | EKG ---
[place], [place] ELECTROCARDIOGRAM REPORT NAME: SANTO LOMAS UNIT #: [id number] ROOM: 506 DOCTOR: EDDY DRAFT REPORT BIRTHDATE: [birth year] [facility] Test Date: 2018-03-31 Test Time: 23:05:14 Pat Name: SANTO LOMAS Department: Room: 506 Gender: F Government Relations Analyst: BALDEMAR : 1955 Requested By: ANEL OLIVERA Order Number: [id number] Reading MD: Dominique Khan MD Measurements Intervals [place] Rate: 78 P: 11 DC: 198 QRS: 2 QRSD: 92 T: -13 QT: 383 QTc: 437 Interpretive Statements Sinus rhythm Anterior infarct, old Borderline T abnormalities, inferior leads Electronically Signed On 04-01-2018 13:57:06 PDT by Dominique Khan MD CM:EKGRPT:ELECTROCARDIOGRAM REPORT 1357 ANEL DAVIS DRAFT REPORT ANEL OLIVERA DO
[~2018-03-31 19:58] MED LIST changes: +GLUCOPHAGE1000 MG PO; -METFORMIN1000 MG PO
[2018-03-31 20:03] VITALS: BP 128/80
[2018-03-31] MEDS ORDERED: CRESTOR40 M1 PO (20:28)
[2018-03-31] MEDS ORDERED: ALOGLIPTIN25 MG PO (20:29)
[2018-03-31 20:35] VITALS: BP 144/69
[2018-03-31 20:38] LABS: BASO % 0.3 % (0.0-1.0); EOS # 0.1 10*3/uL (0.0-0.4); EOS % 1.1 % (1.0-4.0); HEMATOCRIT 38.1 % (37.0-47.0); HEMOGLOBIN 12.6 g/dl (12.0-16.0); LYMPH # 2.7 10*3/uL (1.3-4.4); LYMPH % 28.7 % (27.0-41.0); MEAN CELL VOLUME 93.4 fl (81.0-99.0); MEAN CORPUSCULAR HGB 30.9 pg (27.0-31.0); MEAN CORPUSCULAR HGB CONC 33.1 g/dl (33.0-37.0); MEAN PLATELET VOLUME 12.1 fl (9.6-12.3); MONO # 0.5 10*3/uL (0.1-1.0); MONO % 5.2 % (3.0-9.0); NEUT # 5.9 10*3/uL (2.3-7.9); NEUT % 64.3 % (47.0-73.0); PLATELET COUNT AUTOMATED 188 10*3/uL (130-400); RED BLOOD COUNT 4.08 10*6/uL (4.10-5.10); RED CELL DISTRI WIDTH 12.7 % (0-14.5); WHITE BLOOD COUNT 9.2 10*3/uL (4.8-10.8)
[2018-03-31 20:56] LABS: ALBUMIN 3.9 gm/dl (3.1-4.5); ALKALINE PHOSPHATASE 41 U/L (45-117); BUN 18 mg/dl (7-24); CHLORIDE 107 mmol/L (98-107); CREATININE 1.38 mg/dL (0.55-1.02); POTASSIUM 4.5 mmol/L (3.5-5.1); SGOT/AST 19 IU/L (3-35); SGPT/ALT 20 U/L (12-78); SODIUM 141 mmol/L (136-145); TOTAL PROTEIN 7.6 gm/dL (6.4-8.2)
[2018-03-31 21:00] LABS: ACT PARTIAL THROMBO TIME 24.6 SECONDS (20.8-31.5)
[2018-03-31 21:01] LABS: TROPONIN I < 0.015 ng/ml (<0.045)
[2018-03-31 21:07] VITALS: BP 135/73
[2018-03-31] MEDS ORDERED: ECPIRIN325 MG PO (21:09)
[2018-03-31 21:41] VITALS: BP 148/73
[2018-03-31 22:00] VITALS: BP 140/54
[2018-03-31] MEDS ORDERED: VITAMIN D5000 UNI1 PO (22:47)
[2018-04-01 06:42] LABS: BASO % 0.4 % (0.0-1.0); EOS # 0.1 10*3/uL (0.0-0.4); EOS % 1.4 % (1.0-4.0); HEMATOCRIT 33.2 % (37.0-47.0); HEMOGLOBIN 10.6 g/dl (12.0-16.0); LYMPH # 3.4 10*3/uL (1.3-4.4); LYMPH % 42.7 % (27.0-41.0); MEAN CELL VOLUME 95.4 fl (81.0-99.0); MEAN CORPUSCULAR HGB 30.5 pg (27.0-31.0); MEAN CORPUSCULAR HGB CONC 31.9 g/dl (33.0-37.0); MEAN PLATELET VOLUME 11.9 fl (9.6-12.3); MONO # 0.4 10*3/uL (0.1-1.0); MONO % 5.4 % (3.0-9.0); NEUT % 49.8 % (47.0-73.0); PLATELET COUNT AUTOMATED 155 10*3/uL (130-400); RED BLOOD COUNT 3.48 10*6/uL (4.10-5.10); RED CELL DISTRI WIDTH 13.1 % (0-14.5)
[2018-04-01 07:08] LABS: ALBUMIN 3.3 gm/dl (3.1-4.5); CREATININE 1.18 mg/dL (0.55-1.02); PHOSPHOROUS 3.5 mg/dL (2.5-4.9); POTASSIUM 4.1 mmol/L (3.5-5.1)
[2018-04-01 07:09] LABS: TOTAL PROTEIN 6.2 gm/dL (6.4-8.2)
[2018-04-01 08:00] VITALS: BP 133/46
[2018-04-01 08:00] LABS: VITAMIN D, 25-HYDROXY 38.9 ng/mL (30-100)
[2018-04-01 12:00] VITALS: BP 125/64
[2018-04-01 16:00] VITALS: BP 123/39
[2018-04-01] MEDS ORDERED: INVOKANA100 M1 PO (16:35)
[2018-04-01 20:00] VITALS: BP 123/50
[2018-04-02] VITALS: BP 159/79
== END 2018-04-02 05:18 | disposition other institution (70) | DRG 683 ==
LOC: ED 19:58 → EDHOLD 21:24 → 5E 21:24
PROVIDERS: Family Medicine; Student in an Organized Health Care Education/Training Program
DX: N17.0 Acute kidney failure with tubular necrosis (principal); E44.1 Mild protein-calorie malnutrition; E87.2 Acidosis; Z68.43 Body mass index [BMI] 50.0-59.9, adult; R42 Dizziness and giddiness; R07.9 Chest pain, unspecified; M79.602 Pain in left arm; E11.65 Type 2 diabetes mellitus with hyperglycemia; I25.10 Atherosclerotic heart disease of native coronary artery without angina pectoris; E66.01 Morbid (severe) obesity due to excess calories; N18.3 Chronic kidney disease, stage 3 (moderate); E83.42 Hypomagnesemia; K21.9 Gastro-esophageal reflux disease without esophagitis; E11.22 Type 2 diabetes mellitus with diabetic chronic kidney disease; I12.9 Hypertensive chronic kidney disease with stage 1 through stage 4 chronic kidney disease, or unspecified chronic kidney disease; Z88.8 Allergy status to other drugs, medicaments and biological substances; Z79.899 Other long term (current) drug therapy; Z79.82 Long term (current) use of aspirin; I25.2 Old myocardial infarction; Z88.1 Allergy status to other antibiotic agents; Z88.0 Allergy status to penicillin; Z85.828 Personal history of other malignant neoplasm of skin; Z98.891 History of uterine scar from previous surgery; Z98.51 Tubal ligation status; Z82.3 Family history of stroke; Z82.49 Family history of ischemic heart disease and other diseases of the circulatory system; Z83.3 Family history of diabetes mellitus; Z82.0 Family history of epilepsy and other diseases of the nervous system; Z79.84 Long term (current) use of oral hypoglycemic drugs; Z95.5 Presence of coronary angioplasty implant and graft

== ENCOUNTER 2018-05-05 15:12 | Inpatient (IN) | payer OTHER ==
[~2018-05-05] VITALS: Ht 170.1 cm; Wt 156.5 kg
--- NOTE | ~2018-05-05 | EKG ---
[place], [place] ELECTROCARDIOGRAM REPORT NAME: SANTO LOMAS UNIT #: [id number] ROOM: DOCTOR: EPIPHANY DRAFT REPORT BIRTHDATE: [birth year] [facility] Test Date: 2018-05-05 Test Time: 16:09:53 Pat Name: SANTO LOMAS Department: Room: Gender: F Party Host/Hostess: : 1955 Requested By: NOMI LEON DNP Order Number: [id number] Reading MD: Measurements Intervals [place] Rate: 85 P: -6 [place]: 71 QRS: -10 QRSD: 101 T: -31 QT: 424 QTc: 505 Interpretive Statements Sinus rhythm Short [place] interval Inferior infarct, old Probable anterior infarct, age indeterminate Prolonged QT interval Compared to ECG 04/01/2018 01:47:37 Short [place] interval now present Prolonged QT interval now present Myocardial infarct finding still present CM:EKGRPT:ELECTROCARDIOGRAM REPORT 1609 1311 NOMI LEON DNP EPIPHANY DRAFT REPORT NOMI LEON DNP
[~2018-05-05 15:12] MED LIST changes: +ALOGLIPTIN25 MG PO; +CRESTOR40 M1 PO; +ECPIRIN325 MG PO; +VITAMIN D5000 UNI1 PO
[2018-05-05 15:13] VITALS: BP 95/51
[2018-05-05 16:11] LABS: BASO % 0.4 % (0.0-1.0); EOS # 0.2 10*3/uL (0.0-0.4); EOS % 2.8 % (1.0-4.0); HEMATOCRIT 37.6 % (37.0-47.0); HEMOGLOBIN 12.5 g/dl (12.0-16.0); LYMPH # 2.1 10*3/uL (1.3-4.4); LYMPH % 29.1 % (27.0-41.0); MEAN CELL VOLUME 93.8 fl (81.0-99.0); MEAN CORPUSCULAR HGB 31.2 pg (27.0-31.0); MEAN CORPUSCULAR HGB CONC 33.2 g/dl (33.0-37.0); MONO # 0.5 10*3/uL (0.1-1.0); MONO % 6.9 % (3.0-9.0); NEUT # 4.3 10*3/uL (2.3-7.9); NEUT % 60.5 % (47.0-73.0); PLATELET COUNT AUTOMATED 169 10*3/uL (130-400); RED BLOOD COUNT 4.01 10*6/uL (4.10-5.10); RED CELL DISTRI WIDTH 12.5 % (0-14.5); WHITE BLOOD COUNT 7.1 10*3/uL (4.8-10.8)
[2018-05-05 16:22] LABS: ACT PARTIAL THROMBO TIME 24.7 SECONDS (20.8-31.5)
[2018-05-05 16:28] VITALS: BP 101/48
[2018-05-05 16:28] LABS: ALBUMIN 3.5 gm/dl (3.1-4.5); ALKALINE PHOSPHATASE 39 U/L (45-117); BUN 25 mg/dl (7-24); CHLORIDE 106 mmol/L (98-107); CREATININE 2.73 mg/dL (0.55-1.02); LIPASE 87 U/L (73-393); POTASSIUM 4.1 mmol/L (3.5-5.1); SGOT/AST 19 IU/L (3-35); SGPT/ALT 21 U/L (12-78); SODIUM 139 mmol/L (136-145); TOTAL PROTEIN 7.3 gm/dL (6.4-8.2)
[2018-05-05 16:32] LABS: TROPONIN I < 0.015 ng/ml (<0.045)
[2018-05-05 19:15] VITALS: BP 110/58
[2018-05-05 19:42] VITALS: BP 109/55
[2018-05-05 19:42] LABS: CLARITY CLEAR (CLEAR); COLOR YELLOW (YELLOW)
[2018-05-05 19:43] LABS: BILIRUBIN NEGATIVE (NEGATIVE); BLOOD TRACE-INTACT (NEGATIVE); GLUCOSE NEGATIVE (NEGATIVE); KETONE NEGATIVE (NEGATIVE); LEUKO ESTERASE NEGATIVE (NEGATIVE); NITRITE NEGATIVE (NEGATIVE); SPECIFIC GRAVITY < 1.005 (1.005-1.030); UROBILINOGEN 0.2 E.U./dl (0.2-1.0)
[2018-05-05 19:48] LABS: BACTERIA 2+; EPITHELIAL CELLS 16-20
[2018-05-06] VITALS: BP 117/54
[2018-05-06 06:05] LABS: BASO % 0.3 % (0.0-1.0); EOS # 0.2 10*3/uL (0.0-0.4); EOS % 2.8 % (1.0-4.0); HEMATOCRIT 34.1 % (37.0-47.0); LYMPH # 2.6 10*3/uL (1.3-4.4); LYMPH % 37.5 % (27.0-41.0); MEAN CELL VOLUME 94.7 fl (81.0-99.0); MEAN CORPUSCULAR HGB 30.6 pg (27.0-31.0); MEAN CORPUSCULAR HGB CONC 32.3 g/dl (33.0-37.0); MEAN PLATELET VOLUME 12.3 fl (9.6-12.3); MONO # 0.5 10*3/uL (0.1-1.0); MONO % 7.1 % (3.0-9.0); NEUT # 3.6 10*3/uL (2.3-7.9); NEUT % 52.2 % (47.0-73.0); PLATELET COUNT AUTOMATED 147 10*3/uL (130-400); RED CELL DISTRI WIDTH 12.4 % (0-14.5); WHITE BLOOD COUNT 6.9 10*3/uL (4.8-10.8)
[2018-05-06 06:34] LABS: POTASSIUM 3.5 mmol/L (3.5-5.1)
[2018-05-06 06:39] LABS: ACT PARTIAL THROMBO TIME 24.6 SECONDS (20.8-31.5)
[2018-05-06 06:46] LABS: ALBUMIN 3.1 gm/dl (3.1-4.5); CREATININE 2.34 mg/dL (0.55-1.02); PHOSPHOROUS 3.6 mg/dL (2.5-4.9); THYROID STIM HORMONE (HS) 2.28 uIU/ml (0.358-4.75); TOTAL PROTEIN 6.4 gm/dL (6.4-8.2)
[2018-05-06 08:00] VITALS: BP 124/47
[2018-05-06 09:42] LABS: VITAMIN D, 25-HYDROXY 54.2 ng/mL (30-100)
[2018-05-06 12:00] VITALS: BP 101/60
[2018-05-06 15:53] VITALS: BP 107/49
[2018-05-06 17:22] LABS: CREATININE 2.29 mg/dL (0.55-1.02); POTASSIUM 3.7 mmol/L (3.5-5.1)
[2018-05-06 20:00] VITALS: BP 108/65; BP 147/46
[2018-05-07] VITALS: BP 101/66
[2018-05-07 06:02] LABS: BASO % 0.6 % (0.0-1.0); EOS # 0.2 10*3/uL (0.0-0.4); EOS % 4.3 % (1.0-4.0); HEMATOCRIT 30.9 % (37.0-47.0); HEMOGLOBIN 10.1 g/dl (12.0-16.0); LYMPH # 2.2 10*3/uL (1.3-4.4); LYMPH % 43.9 % (27.0-41.0); MEAN CELL VOLUME 94.2 fl (81.0-99.0); MEAN CORPUSCULAR HGB 30.8 pg (27.0-31.0); MEAN CORPUSCULAR HGB CONC 32.7 g/dl (33.0-37.0); MEAN PLATELET VOLUME 12.1 fl (9.6-12.3); MONO # 0.4 10*3/uL (0.1-1.0); MONO % 8.1 % (3.0-9.0); NEUT # 2.1 10*3/uL (2.3-7.9); NEUT % 42.9 % (47.0-73.0); PLATELET COUNT AUTOMATED 120 10*3/uL (130-400); RED BLOOD COUNT 3.28 10*6/uL (4.10-5.10); RED CELL DISTRI WIDTH 12.5 % (0-14.5); WHITE BLOOD COUNT 4.9 10*3/uL (4.8-10.8)
[2018-05-07 06:08] LABS: CREATININE 2.08 mg/dL (0.55-1.02); PHOSPHOROUS 2.9 mg/dL (2.5-4.9); POTASSIUM 3.5 mmol/L (3.5-5.1)
[2018-05-07 08:00] VITALS: BP 111/48
[2018-05-07 13:00] VITALS: BP 103/48
[2018-05-07 16:00] VITALS: BP 98/57
[2018-05-07 20:00] VITALS: BP 128/51
[2018-05-08] VITALS: BP 149/62
[2018-05-08 06:12] LABS: CREATININE 1.99 mg/dL (0.55-1.02); POTASSIUM 3.6 mmol/L (3.5-5.1)
[2018-05-08 06:14] LABS: BASO % 0.4 % (0.0-1.0); EOS # 0.2 10*3/uL (0.0-0.4); EOS % 3.8 % (1.0-4.0); HEMATOCRIT 30.4 % (37.0-47.0); HEMOGLOBIN 9.9 g/dl (12.0-16.0); LYMPH # 2.1 10*3/uL (1.3-4.4); LYMPH % 41.2 % (27.0-41.0); MEAN CELL VOLUME 94.1 fl (81.0-99.0); MEAN CORPUSCULAR HGB 30.7 pg (27.0-31.0); MEAN CORPUSCULAR HGB CONC 32.6 g/dl (33.0-37.0); MEAN PLATELET VOLUME 12.5 fl (9.6-12.3); MONO # 0.4 10*3/uL (0.1-1.0); MONO % 8.2 % (3.0-9.0); NEUT # 2.3 10*3/uL (2.3-7.9); NEUT % 46.2 % (47.0-73.0); PLATELET COUNT AUTOMATED 115 10*3/uL (130-400); RED BLOOD COUNT 3.23 10*6/uL (4.10-5.10); RED CELL DISTRI WIDTH 12.5 % (0-14.5)
[2018-05-08 08:00] VITALS: BP 108/58
== END 2018-05-08 12:14 | disposition home or self-care (01) | DRG 683 ==
LOC: ED 15:12 → 4E 18:34 → EDHOLD 18:34 → 4E 18:59
PROVIDERS: Family Medicine; Internal Medicine; Nurse Practitioner Family; Student in an Organized Health Care Education/Training Program
DX: N17.0 Acute kidney failure with tubular necrosis (principal); Z68.43 Body mass index [BMI] 50.0-59.9, adult; E66.01 Morbid (severe) obesity due to excess calories; N18.3 Chronic kidney disease, stage 3 (moderate); E11.65 Type 2 diabetes mellitus with hyperglycemia; D64.9 Anemia, unspecified; I25.10 Atherosclerotic heart disease of native coronary artery without angina pectoris; I12.9 Hypertensive chronic kidney disease with stage 1 through stage 4 chronic kidney disease, or unspecified chronic kidney disease; R19.7 Diarrhea, unspecified; E11.22 Type 2 diabetes mellitus with diabetic chronic kidney disease; F41.1 Generalized anxiety disorder; D69.6 Thrombocytopenia, unspecified; E83.42 Hypomagnesemia; Z88.1 Allergy status to other antibiotic agents; Z88.0 Allergy status to penicillin; Z88.8 Allergy status to other drugs, medicaments and biological substances; Z98.891 History of uterine scar from previous surgery; Z82.49 Family history of ischemic heart disease and other diseases of the circulatory system; Z81.8 Family history of other mental and behavioral disorders; Z95.5 Presence of coronary angioplasty implant and graft; Z79.899 Other long term (current) drug therapy; Z79.82 Long term (current) use of aspirin

== ENCOUNTER → 2018-05-11 | Outpatient (CLI) | payer OTHER ==
[2018-05-11 11:48] LABS: CREATININE 1.62 mg/dL (0.55-1.02); POTASSIUM 3.5 mmol/L (3.5-5.1)
== END | disposition home or self-care (01) ==
LOC: LAB 10:56
PROVIDERS: Internal Medicine
DX: N17.0 Acute kidney failure with tubular necrosis (principal)

== ENCOUNTER → 2018-10-12 | Outpatient (CLI) | payer OTHER ==
[~2018-10-12] MED LIST changes: +SEPTDS PO
== END | disposition home or self-care (01) ==
LOC: RESCLI 15:11
DX: J32.9 Chronic sinusitis, unspecified (principal); J04.0 Acute laryngitis; J40 Bronchitis, not specified as acute or chronic; E11.9 Type 2 diabetes mellitus without complications; I10 Essential (primary) hypertension; E78.5 Hyperlipidemia, unspecified

== ENCOUNTER 2018-10-13 16:35 | Emergency (ER) | payer OTHER ==
--- NOTE | ~2018-10-13 | EKG ---
[place], [place] ELECTROCARDIOGRAM REPORT NAME: SANTO LMOAS UNIT #: [id number] ROOM: DOCTOR: EPIPHANY DRAFT REPORT BIRTHDATE: [birth year] [facility] Test Date: 2018-10-13 Test Time: 17:06:10 Pat Name: SANTO LOMAS Department: Room: Gender: F Radiology Nurse: Marina Stephen : 1955 Requested By: BETTY MITTAL Order Number: [id number] Reading MD: Dominique Khan MD Measurements Intervals [place] Rate: 98 P: -12 [place]: 153 QRS: -8 QRSD: 85 T: -17 QT: 319 QTc: 408 Interpretive Statements Sinus rhythm Left ventricular hypertrophy Inferior infarct, old Godwin-septal [place], age undetermined Baseline wander in lead(s) V3,V4,V5,V6 Compared to ECG 05/05/2018 16:09:53 Left ventricular hypertrophy now present Q waves now present Short [place] interval no longer present Prolonged QT interval no longer present Myocardial infarct finding still present Electronically Signed On 10-15-2018 15:52:04 PDT by Dominique Khan MD CM:EKGRPT:ELECTROCARDIOGRAM REPORT 1706 1552 BETTY KAM DRAFT REPORT BETTY MITTAL M.D.
[~2018-10-13 16:35] MED LIST changes: -SEPTDS PO
[2018-10-13 17:03] LABS: BASO % 0.2 % (0.0-1.0); EOS # 0.1 10*3/uL (0.0-0.4); EOS % 0.8 % (1.0-4.0); HEMATOCRIT 37.5 % (37.0-47.0); HEMOGLOBIN 12.8 g/dl (12.0-16.0); LYMPH # 2.7 10*3/uL (1.3-4.4); LYMPH % 28.1 % (27.0-41.0); MEAN CELL VOLUME 91.2 fl (81.0-99.0); MEAN CORPUSCULAR HGB 31.1 pg (27.0-31.0); MEAN CORPUSCULAR HGB CONC 34.1 g/dl (33.0-37.0); MEAN PLATELET VOLUME 11.7 fl (9.6-12.3); MONO # 0.6 10*3/uL (0.1-1.0); MONO % 6.7 % (3.0-9.0); NEUT % 63.8 % (47.0-73.0); PLATELET COUNT AUTOMATED 249 10*3/uL (130-400); RED BLOOD COUNT 4.11 10*6/uL (4.10-5.10); RED CELL DISTRI WIDTH 12.8 % (0-14.5); WHITE BLOOD COUNT 9.5 10*3/uL (4.8-10.8)
[2018-10-13 17:21] LABS: ALBUMIN 3.4 gm/dl (3.1-4.5); CREATININE 1.38 mg/dL (0.55-1.02); TOTAL PROTEIN 7.6 gm/dL (6.4-8.2)
[2018-10-13 20:19] LABS: BILIRUBIN NEGATIVE (NEGATIVE); BLOOD NEGATIVE (NEGATIVE); CLARITY CLEAR (CLEAR); COLOR YELLOW (YELLOW); GLUCOSE NEGATIVE (NEGATIVE); KETONE NEGATIVE (NEGATIVE); LEUKO ESTERASE NEGATIVE (NEGATIVE); NITRITE NEGATIVE (NEGATIVE); SPECIFIC GRAVITY <= 1.005 (1.005-1.030); UROBILINOGEN 0.2 E.U./dl (0.2-1.0)
[2018-10-13 20:35] LABS: BACTERIA 1+
[2018-10-13] MEDS ORDERED: SEPTDS PO (20:41)
== END 2018-10-13 20:43 | disposition home or self-care (01) ==
LOC: ED 16:35
PROVIDERS: Emergency Medicine
DX: N39.0 Urinary tract infection, site not specified (principal); I25.10 Atherosclerotic heart disease of native coronary artery without angina pectoris; E66.01 Morbid (severe) obesity due to excess calories; E11.22 Type 2 diabetes mellitus with diabetic chronic kidney disease; I12.9 Hypertensive chronic kidney disease with stage 1 through stage 4 chronic kidney disease, or unspecified chronic kidney disease; N18.3 Chronic kidney disease, stage 3 (moderate); Z88.0 Allergy status to penicillin; Z88.1 Allergy status to other antibiotic agents; Z88.8 Allergy status to other drugs, medicaments and biological substances; Z79.899 Other long term (current) drug therapy; Z79.84 Long term (current) use of oral hypoglycemic drugs; Z68.43 Body mass index [BMI] 50.0-59.9, adult

== ENCOUNTER → 2018-11-23 | Outpatient (CLI) | payer OTHER ==
[~2018-11-23] MED LIST changes: +SEPTDS PO
== END | disposition home or self-care (01) ==
LOC: RESCLI 09:41
DX: E11.59 Type 2 diabetes mellitus with other circulatory complications (principal); E55.9 Vitamin D deficiency, unspecified; E53.8 Deficiency of other specified B group vitamins; I12.9 Hypertensive chronic kidney disease with stage 1 through stage 4 chronic kidney disease, or unspecified chronic kidney disease; E11.22 Type 2 diabetes mellitus with diabetic chronic kidney disease; N18.3 Chronic kidney disease, stage 3 (moderate); G89.29 Other chronic pain; F41.1 Generalized anxiety disorder; E78.5 Hyperlipidemia, unspecified; R60.9 Edema, unspecified; K21.9 Gastro-esophageal reflux disease without esophagitis; I25.10 Atherosclerotic heart disease of native coronary artery without angina pectoris; M79.605 Pain in left leg; R25.2 Cramp and spasm

== ENCOUNTER → 2018-12-15 | Outpatient (CLI) | payer OTHER ==
[2018-12-15 13:43] LABS: CREATININE 1.37 mg/dL (0.55-1.02); POTASSIUM 4.3 mmol/L (3.5-5.1)
[2018-12-16 10:09] LABS: CREATININE,URINE 116.3 mg/dL (Not Estab.); MICRO ALBUMIN/CRE RATIO <2.6 (0.0-30.0)
== END | disposition home or self-care (01) ==
LOC: US 12-09 12:30 → LAB 12:40 → US 13:00
PROVIDERS: Internal Medicine
DX: M79.605 Pain in left leg (principal); N18.3 Chronic kidney disease, stage 3 (moderate); R25.2 Cramp and spasm

== ENCOUNTER → 2018-12-18 | Outpatient (CLI) | payer OTHER | END | disposition home or self-care (01) | LOC: RESCLI 00:21 | DX: I25.10 Atherosclerotic heart disease of native coronary artery without angina pectoris (principal); E11.9 Type 2 diabetes mellitus without complications; K21.9 Gastro-esophageal reflux disease without esophagitis; E55.9 Vitamin D deficiency, unspecified; N90.4 Leukoplakia of vulva; J40 Bronchitis, not specified as acute or chronic; E78.5 Hyperlipidemia, unspecified; I73.9 Peripheral vascular disease, unspecified; B37.2 Candidiasis of skin and nail; R60.9 Edema, unspecified; I10 Essential (primary) hypertension; G89.29 Other chronic pain; Z79.899 Other long term (current) drug therapy ==

== ENCOUNTER → 2019-01-12 | Outpatient (CLI) | payer OTHER | END | disposition home or self-care (01) | LOC: RESCLI 00:17 | DX: I25.10 Atherosclerotic heart disease of native coronary artery without angina pectoris (principal); R60.9 Edema, unspecified; I10 Essential (primary) hypertension; G89.29 Other chronic pain; K21.9 Gastro-esophageal reflux disease without esophagitis; E55.9 Vitamin D deficiency, unspecified; J40 Bronchitis, not specified as acute or chronic; N90.4 Leukoplakia of vulva; B37.2 Candidiasis of skin and nail; E11.9 Type 2 diabetes mellitus without complications; E78.5 Hyperlipidemia, unspecified; E66.01 Morbid (severe) obesity due to excess calories; Z79.899 Other long term (current) drug therapy; Z79.82 Long term (current) use of aspirin; Z88.0 Allergy status to penicillin; Z88.8 Allergy status to other drugs, medicaments and biological substances ==

== ENCOUNTER → 2019-02-26 | Outpatient (CLI) | payer OTHER ==
[2019-02-26 12:23] LABS: ALBUMIN 3.5 gm/dl (3.1-4.5); CREATININE 1.2 mg/dL (0.55-1.02); POTASSIUM 4.3 mmol/L (3.5-5.1); TOTAL PROTEIN 6.8 gm/dL (6.4-8.2)
[2019-02-27 08:10] LABS: CREATININE,URINE 75.8 mg/dL (Not Estab.); MICRO ALBUMIN/CRE RATIO <4.0 (0.0-30.0)
== END | disposition home or self-care (01) ==
LOC: LAB 11:28
PROVIDERS: Internal Medicine Endocrinology, Diabetes & Metabolism
DX: E11.65 Type 2 diabetes mellitus with hyperglycemia (principal); E22.9 Hyperfunction of pituitary gland, unspecified; E55.9 Vitamin D deficiency, unspecified

== ENCOUNTER → 2019-03-09 | Outpatient (CLI) | payer OTHER | END | disposition home or self-care (01) | LOC: RESCLI 00:57 | DX: E11.22 Type 2 diabetes mellitus with diabetic chronic kidney disease (principal); E11.65 Type 2 diabetes mellitus with hyperglycemia; N18.3 Chronic kidney disease, stage 3 (moderate); E66.01 Morbid (severe) obesity due to excess calories; R00.2 Palpitations; I25.10 Atherosclerotic heart disease of native coronary artery without angina pectoris; Z79.82 Long term (current) use of aspirin; Z79.899 Other long term (current) drug therapy; Z88.0 Allergy status to penicillin ==

== ENCOUNTER → 2019-03-11 | Outpatient (CLI) | payer OTHER ==
--- NOTE | ~2019-03-11 | HM ---
[place], [place] HOLTER MONITOR REPORT [id number] UNIT #: [id number] ROOM: DOCTOR: ABHISHEK CHENG BIRTHDATE: [birth year] DOS: 03/15/2019 A 48-HOUR HOLTER MONITOR REPORT INDICATION: Palpitations. The predominant rhythm was normal sinus rhythm with an average heart rate of 80 beats per minute. The minimum heart rate was 54 with a high of 140 beats per minute. There was no ventricular ectopy. There was no atrial fibrillation. There were multiple episodes of supraventricular ectopy, consisting of a total of 346 supraventricular ectopic beats, 236 were in 29 runs. The longest run was 32 beats with a maximum heart rate of 162 beats per minute. The fastest run consisted of 8 beats and the heart rate was 176 beats per minute. Symptoms of dizziness reported by the patient did correlate to runs of supraventricular ectopy. IMPRESSION: 1. Predominant rhythm is normal sinus rhythm. 2. Multiple episodes of paroxysmal supraventricular tachycardia, with the longest run of 32 beats, with rates up to 160s and 170s. Likely paroxysmal atrial tachycardia vs other paroxysmal SVT. 3. No ventricular ectopy. 4. No sinus node dysfunction or AV block noted. Dr. ABHISHEK CHENG MD CM:HOLTER:HOLTER MONITOR REPORT [id number] 1702 ABHISHEK CHENG
== END | disposition home or self-care (01) ==
LOC: CARD 09:48
DX: I47.1 Supraventricular tachycardia (principal); R00.2 Palpitations

== ENCOUNTER → 2019-04-15 | Outpatient (CLI) | payer OTHER ==
[~2019-04-15] MED LIST changes: +CRESTOR10 M1 PO; +HUMALOG100 UNIT/2 SQ; +KLONOPIN1 M1 PO; +LANTUS SOL100 UNIT/1 SQ; +NEURONTIN100 MG PO; +TRAD5TAB1 PO; +VITAMIN D22000 UNIT PO; +ZETIA10 MG PO
== END | disposition home or self-care (01) ==
LOC: RESCLI 01:52
DX: R60.9 Edema, unspecified (principal); I10 Essential (primary) hypertension; I25.10 Atherosclerotic heart disease of native coronary artery without angina pectoris; G89.29 Other chronic pain; K21.9 Gastro-esophageal reflux disease without esophagitis; E11.9 Type 2 diabetes mellitus without complications; N90.4 Leukoplakia of vulva; E11.65 Type 2 diabetes mellitus with hyperglycemia; E66.01 Morbid (severe) obesity due to excess calories; B37.2 Candidiasis of skin and nail; Z79.899 Other long term (current) drug therapy

== ENCOUNTER 2019-06-05 06:56 | Inpatient (IN) | payer OTHER ==
[~2019-06-05] VITALS: Ht 167.6 cm; Wt 164.2 kg
[2019-06-05] VITALS (10 sets, daily range): BP systolic 120–158; BP diastolic 52–75
[~2019-06-05 06:56] MED LIST changes: -CRESTOR10 M1 PO; -HUMALOG100 UNIT/2 SQ; -KLONOPIN1 M1 PO; -LANTUS SOL100 UNIT/1 SQ; -NEURONTIN100 MG PO; -TRAD5TAB1 PO; -VITAMIN D22000 UNIT PO; -ZETIA10 MG PO
[2019-06-05 07:14] LABS: BASO % 0.6 % (0.0-1.0); EOS # 0.2 10*3/uL (0.0-0.4); EOS % 2.1 % (1.0-4.0); HEMATOCRIT 41.1 % (37.0-47.0); HEMOGLOBIN 13.1 g/dl (12.0-16.0); LYMPH # 2.4 10*3/uL (1.3-4.4); LYMPH % 34.4 % (27.0-41.0); MEAN CELL VOLUME 95.6 fl (81.0-99.0); MEAN CORPUSCULAR HGB 30.5 pg (27.0-31.0); MEAN CORPUSCULAR HGB CONC 31.9 g/dl (33.0-37.0); MEAN PLATELET VOLUME 11.4 fl (9.6-12.3); MONO # 0.4 10*3/uL (0.1-1.0); MONO % 6.3 % (3.0-9.0); NEUT % 56.5 % (47.0-73.0); PLATELET COUNT AUTOMATED 188 10*3/uL (130-400); RED CELL DISTRI WIDTH 12.8 % (0-14.5)
[2019-06-05 07:26] LABS: ACT PARTIAL THROMBO TIME 28.5 SECONDS (20.0-32.1); INTERNATIONAL NORM RATIO 0.9 (2.0-3.5)
[2019-06-05 07:33] LABS: ALBUMIN 3.4 gm/dl (3.1-4.5); CREATININE 1.39 mg/dL (0.55-1.02); POTASSIUM 4.4 mmol/L (3.5-5.1); TOTAL PROTEIN 6.8 gm/dL (6.4-8.2)
--- NOTE | 2019-06-05 07:38 | NUR ---
PATIENT DENIES ANY WOUNDS A&OX4.
--- NOTE | 2019-06-05 07:48 | NUR ---
CRITICAL TROPONIN 0.116. DR MITTAL NOTIFIED.
[2019-06-05 07:49] LABS: TROPONIN I 0.116 ng/ml (<0.045)
--- NOTE | 2019-06-05 14:34 | NUR ---
RENETTA RN CONTACTED AND STATES READY FOR PATIENT. PATIENT TO BE TAKEN TO 5TH FLOOR AT THIS TIME BY THIS NURSE.
--- NOTE | 2019-06-05 14:44 | NUR ---
A 63, admitted to , under the services of KALYANI García DO with a diagnosis of NSTEMI. Chief complaint is BACK PAIN ACROSS UPPER BACK. Patient arrived via bed from ER. Monitor applied. Initial assessment completed. Vital signs taken and recorded. KALYANI GARCÍA DO notified of admission to the unit. Orders received. See assessment for past medical history, medications and allergies. Patient and/or family oriented to unit. [facility] visitation policy reviewed. Clothing/patient valuable form completed. RENETTA BUTLER
[2019-06-05] MEDS ORDERED: LOPRESSOR50 M1 PO (15:03)
[2019-06-05] MEDS ORDERED: VITAMIN D22000 UNIT PO (15:03)
[2019-06-05] MEDS ORDERED: CRESTOR10 M1 PO (15:05)
[2019-06-05] MEDS ORDERED: ZETIA10 MG PO (15:05)
[2019-06-05] MEDS ORDERED: TRAD5TAB1 PO (15:06)
[2019-06-05] MEDS ORDERED: KLONOPIN1 M1 PO (15:07)
[2019-06-05] MEDS ORDERED: CYCLOBENZAPRINE10 MG PO (15:07)
[2019-06-05] MEDS ORDERED: LANTUS SOL100 UNIT/1 SQ (15:08)
[2019-06-05] MEDS ORDERED: HUMALOG100 UNIT/2 SQ (15:09)
--- NOTE | 2019-06-05 21:56 | NUR ---
SPOKE WITH DR CAMERON REGARDING TROPONIN OF 0.124. STATED TO LET CARDIOLOGY KNOW.
--- NOTE | 2019-06-05 22:04 | NUR ---
LEFT A MESSAGE WITH DR RAYMOND ANSWERING SERVICE REGARDING NEW TROPONIN LEVEL.
--- NOTE | 2019-06-05 22:05 | NUR ---
HEPARIN DRIP INCREASED 2UNITS/KG/H. APTT WAS 42.1.
--- NOTE | 2019-06-05 22:42 | NUR ---
WENT IN TO ADJUST HEPARIN PUMP. PRIOR SETTINGS WERE 6.29U/KG/H. IN THE PROTOCAL IT STATED THE INFUSION SHOULD HAVE STARTED OUT AT 12U/KG/H. NOTIFIED DR BENJAMIN. STATED TO LEAVE IT AT 8.29U/KG/H AND REORDER APTT PER POLICY GUIDELINES.
--- NOTE | 2019-06-05 23:52 | NUR ---
24 HR chart check completed.
[2019-06-06] VITALS: BP 145/62
[2019-06-06 04:03] LABS: BASO % 0.4 % (0.0-1.0); EOS # 0.1 10*3/uL (0.0-0.4); EOS % 1.8 % (1.0-4.0); HEMATOCRIT 38.9 % (37.0-47.0); HEMOGLOBIN 12.6 g/dl (12.0-16.0); LYMPH # 3.1 10*3/uL (1.3-4.4); LYMPH % 41.2 % (27.0-41.0); MEAN CELL VOLUME 95.3 fl (81.0-99.0); MEAN CORPUSCULAR HGB 30.9 pg (27.0-31.0); MEAN CORPUSCULAR HGB CONC 32.4 g/dl (33.0-37.0); MEAN PLATELET VOLUME 11.7 fl (9.6-12.3); MONO # 0.4 10*3/uL (0.1-1.0); MONO % 5.3 % (3.0-9.0); NEUT # 3.9 10*3/uL (2.3-7.9); PLATELET COUNT AUTOMATED 160 10*3/uL (130-400); RED BLOOD COUNT 4.08 10*6/uL (4.10-5.10); RED CELL DISTRI WIDTH 12.9 % (0-14.5); WHITE BLOOD COUNT 7.6 10*3/uL (4.8-10.8)
[2019-06-06 04:20] LABS: CREATININE 1.23 mg/dL (0.55-1.02); PHOSPHOROUS 4.3 mg/dL (2.5-4.9); POTASSIUM 3.8 mmol/L (3.5-5.1)
--- NOTE | 2019-06-06 04:33 | NUR ---
APTT 55.4 NO ADJUSTMENT IN HEPARIN DRIP NECESSARY
[2019-06-06 08:00] VITALS: BP 136/54
[2019-06-06] MEDS ORDERED: NEURONTIN100 MG PO ×2 (10:12)
[2019-06-06 12:00] VITALS: BP 139/59
[2019-06-06 16:00] VITALS: BP 113/46
[2019-06-06 20:00] VITALS: BP 107/55
--- NOTE | 2019-06-06 21:50 | NUR ---
BLOOD SUGAR 214
--- NOTE | 2019-06-06 22:52 | NUR ---
24 HR chart check completed.
[2019-06-07] VITALS: BP 102/50
--- NOTE | 2019-06-07 00:43 | NUR ---
Patient resting quietly with no c/o discomfort. Respirations easy and regular. Vital signs stable. No overt distress. CALL LIGHT WITHIN REACH HISSOM,PATRICIA
--- NOTE | 2019-06-07 04:07 | NUR ---
Patient sleeping. Respirations relaxed and easy. Siderails up . [place] on. CALL LIGHT WITHIN REACH HISSOM,PATRICIA
[2019-06-07 06:12] LABS: CREATININE 1.3 mg/dL (0.55-1.02); POTASSIUM 3.9 mmol/L (3.5-5.1)
--- NOTE | 2019-06-07 06:17 | NUR ---
BLOOD SUGAR 164
[2019-06-07 08:00] VITALS: BP 102/48
--- NOTE | 2019-06-07 10:03 | NUR ---
INFORMED CONSENT SIGNED FOR LEXISCAN STRESS TEST WITH DR. GARY. RESTING EKG NSR, HR 70, BP 126/60. PULSE OX 98% AND LUNGS CLEAR. COMPLETED ONE MINUTE OF A LEXISCAN PROTOCOL RECEIVING LEXISCAN 0.4MG OVER 10 SECONDS. NO ARRHYTHMIAS OR ST CHANGES NOTED. PT C/O SOB AND "STRANGE". LAST RECOVERY HR 83, BP 126/68. WAITING NUCLEAR SCANNING IN STABLE CONDITION.
--- NOTE | 2019-06-07 10:30 | NUR ---
Avionics Systems Integration Specialist in to see patient. She is not currently in her room. Will follow up at a later time.
[2019-06-07 12:00] VITALS: BP 124/82
[2019-06-07 16:00] VITALS: BP 138/61
--- NOTE | 2019-06-07 16:09 | NUR ---
MEDICATED WITH PRN KLONOPIN PER ORDER AND REQUEST.
[2019-06-07 20:00] VITALS: BP 121/54
--- NOTE | 2019-06-07 21:33 | NUR ---
KLONOPIN AND FLEXERIL ADMINISTERED FOR PT C/O ANXIETY AND GENERALIZED MUSCLE PAIN. WILL CONTINUE TO MONITOR AND REASSESS. NO OTHER COMPLAINTS AT THIS TIME.
--- NOTE | 2019-06-07 23:09 | NUR ---
24 HOUR CHART CHECK COMPLETE.
[2019-06-08] VITALS: BP 113/56
[2019-06-08 06:38] LABS: BASO % 0.3 % (0.0-1.0); EOS # 0.2 10*3/uL (0.0-0.4); EOS % 2.3 % (1.0-4.0); HEMATOCRIT 38.3 % (37.0-47.0); HEMOGLOBIN 12.1 g/dl (12.0-16.0); MEAN CORPUSCULAR HGB 30.3 pg (27.0-31.0); MEAN CORPUSCULAR HGB CONC 31.6 g/dl (33.0-37.0); MEAN PLATELET VOLUME 12.1 fl (9.6-12.3); MONO # 0.5 10*3/uL (0.1-1.0); MONO % 8.2 % (3.0-9.0); NEUT # 3.9 10*3/uL (2.3-7.9); NEUT % 59.2 % (47.0-73.0); PLATELET COUNT AUTOMATED 152 10*3/uL (130-400); RED BLOOD COUNT 3.99 10*6/uL (4.10-5.10); RED CELL DISTRI WIDTH 12.8 % (0-14.5); WHITE BLOOD COUNT 6.6 10*3/uL (4.8-10.8)
[2019-06-08 06:54] LABS: CREATININE 1.26 mg/dL (0.55-1.02)
--- NOTE | 2019-06-08 07:43 | NUR ---
PATIENT TO BE TRANSFERED TO [facility] FOR HEART CATH.
[2019-06-08 08:00] VITALS: BP 114/62; BP 124/72
--- NOTE | 2019-06-08 10:00 | NUR ---
PATIENT TAKEN TO [facility] TISSUE INSERTER VIA AMBULANCE. NURSE TO NURSE REPORT GIVEN.
== END 2019-06-08 10:00 | disposition short-term general hospital (02) | DRG 190 ==
LOC: ED 06:56 → 5E 13:43 → EDHOLD 13:43 → 5E 13:58
PROVIDERS: Emergency Medicine Emergency Medical Services; Internal Medicine; ADMIT Internal Medicine
PROC: 4A02XM4 Measurement of Cardiac Total Activity, External Approach (ICD-10-PCS; principal; 2019-06-07)
PROC: 3E073KZ Introduction of Other Diagnostic Substance into Coronary Artery, Percutaneous Approach (ICD-10-PCS; 2019-06-07)
DX: I21.4 Non-ST elevation (NSTEMI) myocardial infarction (principal); N17.0 Acute kidney failure with tubular necrosis; E11.65 Type 2 diabetes mellitus with hyperglycemia; I25.10 Atherosclerotic heart disease of native coronary artery without angina pectoris; E11.22 Type 2 diabetes mellitus with diabetic chronic kidney disease; N18.3 Chronic kidney disease, stage 3 (moderate); I12.9 Hypertensive chronic kidney disease with stage 1 through stage 4 chronic kidney disease, or unspecified chronic kidney disease; E66.01 Morbid (severe) obesity due to excess calories; F41.1 Generalized anxiety disorder; E44.1 Mild protein-calorie malnutrition; Z88.1 Allergy status to other antibiotic agents; Z79.4 Long term (current) use of insulin; Z88.0 Allergy status to penicillin; Z88.8 Allergy status to other drugs, medicaments and biological substances; Z82.3 Family history of stroke; Z82.49 Family history of ischemic heart disease and other diseases of the circulatory system; Z83.3 Family history of diabetes mellitus; Z79.82 Long term (current) use of aspirin; Z68.43 Body mass index [BMI] 50.0-59.9, adult

== ENCOUNTER → 2019-06-22 | Outpatient (CLI) | payer OTHER ==
[~2019-06-22] MED LIST changes: +CRESTOR10 M1 PO; +HUMALOG100 UNIT/2 SQ; +KLONOPIN1 M1 PO; +LANTUS SOL100 UNIT/1 SQ; +NEURONTIN100 MG PO; +TRAD5TAB1 PO; +VITAMIN D22000 UNIT PO; +ZETIA10 MG PO
== END | disposition home or self-care (01) ==
LOC: RESCLI 01:13
DX: I25.10 Atherosclerotic heart disease of native coronary artery without angina pectoris (principal); E11.65 Type 2 diabetes mellitus with hyperglycemia; R60.9 Edema, unspecified; G89.29 Other chronic pain; K21.9 Gastro-esophageal reflux disease without esophagitis; B37.2 Candidiasis of skin and nail; N90.4 Leukoplakia of vulva; I10 Essential (primary) hypertension; E55.9 Vitamin D deficiency, unspecified; E78.5 Hyperlipidemia, unspecified; F41.9 Anxiety disorder, unspecified; E66.01 Morbid (severe) obesity due to excess calories; Z79.899 Other long term (current) drug therapy; Z88.8 Allergy status to other drugs, medicaments and biological substances

== ENCOUNTER 2019-07-02 14:27 | Inpatient (IN) | payer OTHER ==
[~2019-07-02] VITALS: Ht 167.6 cm; Wt 164.2 kg
[2019-07-02 14:28] VITALS: BP 126/54
[2019-07-02 14:58] LABS: BASO % 0.4 % (0.0-1.0); EOS # 0.1 10*3/uL (0.0-0.4); EOS % 1.8 % (1.0-4.0); HEMATOCRIT 38.2 % (37.0-47.0); HEMOGLOBIN 12.5 g/dl (12.0-16.0); LYMPH # 1.7 10*3/uL (1.3-4.4); LYMPH % 32.2 % (27.0-41.0); MEAN CELL VOLUME 93.6 fl (81.0-99.0); MEAN CORPUSCULAR HGB 30.6 pg (27.0-31.0); MEAN CORPUSCULAR HGB CONC 32.7 g/dl (33.0-37.0); MEAN PLATELET VOLUME 12.6 fl (9.6-12.3); MONO # 0.3 10*3/uL (0.1-1.0); NEUT # 3.1 10*3/uL (2.3-7.9); NEUT % 59.4 % (47.0-73.0); PLATELET COUNT AUTOMATED 181 10*3/uL (130-400); RED BLOOD COUNT 4.08 10*6/uL (4.10-5.10); RED CELL DISTRI WIDTH 12.9 % (0-14.5); WHITE BLOOD COUNT 5.1 10*3/uL (4.8-10.8)
[2019-07-02 15:18] LABS: INTERNATIONAL NORM RATIO 0.9 (2.0-3.5)
[2019-07-02 15:30] VITALS: BP 132/62
[2019-07-02 16:06] LABS: ALBUMIN 3.2 gm/dl (3.1-4.5); ALKALINE PHOSPHATASE 48 U/L (45-117); BUN 23 mg/dl (7-24); CHLORIDE 108 mmol/L (98-107); CREATININE 1.26 mg/dL (0.55-1.02); POTASSIUM 4.2 mmol/L (3.5-5.1); SGOT/AST 13 IU/L (3-35); SGPT/ALT 18 U/L (12-78); SODIUM 140 mmol/L (136-145); TOTAL PROTEIN 6.3 gm/dL (6.4-8.2)
[2019-07-02 16:09] LABS: TROPONIN I < 0.015 ng/ml (<0.045)
[2019-07-02 16:32] VITALS: BP 126/63
[2019-07-02 16:45] VITALS: BP 139/55
--- NOTE | 2019-07-02 16:45 | NUR ---
The assessment has been completed. Time: 1644 A 63 year old FEMALE admitted to under services of TAYLER TURK DO. Pt. arrived via ambulatory from ER. Chief complaint: UPPER BACK PAIN X3DAYS, NO SOB, "SAME PAIN WHEN I HAD MY LAST HEART ATTACK". HISSOM,PATRICIA
--- NOTE | 2019-07-02 17:25 | NUR ---
DR LOPEZ INFORMED THAT PT WAS ON THE FLOOR AND MED REC WAS UP TO DATE
--- NOTE | 2019-07-02 17:26 | NUR ---
DAUGHTER VISITING AT BEDSIDE. PT VOICES NO CONCERNS AT THIS TIME. RESTING IN BED. CALL LIGHT WITHIN REACH
--- NOTE | 2019-07-02 18:15 | NUR ---
DR LOPEZ IN TO SEE PATIENT
[2019-07-02 20:00] VITALS: BP 129/55
--- NOTE | 2019-07-02 20:30 | NUR ---
PT SITTING UP AT SIDE OF BED. RESP-EASY AND REGULAR. NO C/O AT THIS TIME. CALL LIGHT IN REACH. SEE SHIFT ASSESSMENT.
--- NOTE | 2019-07-02 22:00 | NUR ---
PT SITTING UP AT SIDE OF BED. RESP-EASY AND REGULAR. BSG-150, SEE EMAR. PT REQUESTING KLONOPIN AND FLEXERIL. MEDICATED WITH KLONOPIN AND FLEXERIL FOR ANXIETY AND PAIN IN BACK. SEE EMAR. CALL LIGHT IN REACH.
[2019-07-03] VITALS: BP 109/60
--- NOTE | 2019-07-03 00:10 | NUR ---
PT RESTING IN BED. STATES MEDICATION HELPED. NO C/O AT THIS TIME. CALL LIGHT IN REACH. SEE SHIFT ASSESSMENT.
--- NOTE | 2019-07-03 04:00 | NUR ---
PT SLEEPING IN BED. RESP-EASY AND REGULAR. CALL LIGHT IN REACH.
--- NOTE | 2019-07-03 06:00 | NUR ---
PT SLEEPING IN BED, AWAKENS EASILY. BSG-130, SEE EMAR. NO C/O AT THIS TIME. CALL LIGHT IN REACH.
[2019-07-03 07:36] LABS: BASO % 0.4 % (0.0-1.0); EOS # 0.1 10*3/uL (0.0-0.4); EOS % 1.4 % (1.0-4.0); HEMATOCRIT 37.1 % (37.0-47.0); HEMOGLOBIN 12.1 g/dl (12.0-16.0); LYMPH # 1.8 10*3/uL (1.3-4.4); LYMPH % 36.1 % (27.0-41.0); MEAN CELL VOLUME 94.9 fl (81.0-99.0); MEAN CORPUSCULAR HGB 30.9 pg (27.0-31.0); MEAN CORPUSCULAR HGB CONC 32.6 g/dl (33.0-37.0); MEAN PLATELET VOLUME 11.9 fl (9.6-12.3); MONO # 0.3 10*3/uL (0.1-1.0); MONO % 6.5 % (3.0-9.0); NEUT # 2.8 10*3/uL (2.3-7.9); NEUT % 55.4 % (47.0-73.0); PLATELET COUNT AUTOMATED 144 10*3/uL (130-400); RED BLOOD COUNT 3.91 10*6/uL (4.10-5.10); RED CELL DISTRI WIDTH 12.9 % (0-14.5); WHITE BLOOD COUNT 5.1 10*3/uL (4.8-10.8)
[2019-07-03 07:55] LABS: ACT PARTIAL THROMBO TIME 27.9 SECONDS (20.0-32.1); INTERNATIONAL NORM RATIO 0.9 (2.0-3.5)
[2019-07-03 08:00] VITALS: BP 114/74
[2019-07-03 08:04] LABS: POTASSIUM 3.9 mmol/L (3.5-5.1)
[2019-07-03 08:15] LABS: CREATININE 1.12 mg/dL (0.55-1.02); THYROID STIM HORMONE (HS) 1.65 uIU/ml (0.358-4.75)
[2019-07-03 08:37] LABS: VITAMIN D, 25-HYDROXY 56.4 ng/mL (30-100)
--- NOTE | 2019-07-03 09:40 | NUR ---
PT MEDICATED WITH FLEXERIL FOR COMPLAINTS OF UPPER MID BACK MUSCULAR PAIN. WILL MONITOR FOR EFFECTIVENESS.
--- NOTE | 2019-07-03 10:38 | NUR ---
DR GARY HERE AT THIS TIME, STATES PT MAY BE D/C FROM [facility].
[2019-07-03 12:00] VITALS: BP 110/68
--- NOTE | 2019-07-03 12:42 | NUR ---
DR INTERIANO MADE AWARE THAT DR GARY STATES PT MAY BE D/C.
[2019-07-03] MEDS ORDERED: CYCLOBENZAPRINE10 MG PO (13:01)
--- NOTE | 2019-07-03 13:45 | NUR ---
Discharge instructions reviewed with patient/family. Patient receptive and verbalizes understanding. Follow-up care arranged. Written instructions given to patient/family. IV site and youth nutritional monitor removed. KLAUDIA MORENO
== END 2019-07-03 13:45 | disposition home or self-care (01) | DRG 190 ==
LOC: ED 14:27 → EDHOLD 16:16 → 4E 16:36
PROVIDERS: Emergency Medicine; Internal Medicine; ADMIT Emergency Medicine
DX: R07.89 Other chest pain (principal); I21.4 Non-ST elevation (NSTEMI) myocardial infarction; I25.2 Old myocardial infarction; E66.01 Morbid (severe) obesity due to excess calories; Z68.43 Body mass index [BMI] 50.0-59.9, adult; E11.22 Type 2 diabetes mellitus with diabetic chronic kidney disease; I25.10 Atherosclerotic heart disease of native coronary artery without angina pectoris; E78.00 Pure hypercholesterolemia, unspecified; N18.3 Chronic kidney disease, stage 3 (moderate); F41.1 Generalized anxiety disorder; E87.8 Other disorders of electrolyte and fluid balance, not elsewhere classified; E44.0 Moderate protein-calorie malnutrition; I12.9 Hypertensive chronic kidney disease with stage 1 through stage 4 chronic kidney disease, or unspecified chronic kidney disease; Z88.1 Allergy status to other antibiotic agents; Z88.0 Allergy status to penicillin; Z88.8 Allergy status to other drugs, medicaments and biological substances; Z86.73 Personal history of transient ischemic attack (TIA), and cerebral infarction without residual deficits; Z95.5 Presence of coronary angioplasty implant and graft; Z82.49 Family history of ischemic heart disease and other diseases of the circulatory system; Z82.0 Family history of epilepsy and other diseases of the nervous system; Z79.4 Long term (current) use of insulin; Z79.82 Long term (current) use of aspirin; Z79.899 Other long term (current) drug therapy

== ENCOUNTER 2019-08-22 01:48 | Emergency (ER) | payer MEDICARE, OTHER ==
[~2019-08-22] VITALS: Ht 170.1 cm; Wt 158.3 kg
[2019-08-22 02:37] LABS: BASO % 0.5 % (0.0-1.0); EOS # 0.1 10*3/uL (0.0-0.4); EOS % 1.7 % (1.0-4.0); HEMATOCRIT 39.5 % (37.0-47.0); HEMOGLOBIN 12.6 g/dl (12.0-16.0); LYMPH # 2.8 10*3/uL (1.3-4.4); LYMPH % 33.5 % (27.0-41.0); MEAN CELL VOLUME 95.4 fl (81.0-99.0); MEAN CORPUSCULAR HGB 30.4 pg (27.0-31.0); MEAN CORPUSCULAR HGB CONC 31.9 g/dl (33.0-37.0); MEAN PLATELET VOLUME 11.5 fl (9.6-12.3); MONO # 0.6 10*3/uL (0.1-1.0); NEUT # 4.7 10*3/uL (2.3-7.9); NEUT % 57.2 % (47.0-73.0); PLATELET COUNT AUTOMATED 173 10*3/uL (130-400); RED BLOOD COUNT 4.14 10*6/uL (4.10-5.10); WHITE BLOOD COUNT 8.3 10*3/uL (4.8-10.8)
[2019-08-22 02:47] LABS: INTERNATIONAL NORM RATIO 0.9 (2.0-3.5)
[2019-08-22 02:55] LABS: ALBUMIN 3.4 gm/dl (3.1-4.5); ALKALINE PHOSPHATASE 67 U/L (45-117); BUN 30 mg/dl (7-24); CHLORIDE 106 mmol/L (98-107); CREATININE 1.36 mg/dL (0.55-1.02); POTASSIUM 4.3 mmol/L (3.5-5.1); SGOT/AST 9 IU/L (3-35); SGPT/ALT 17 U/L (12-78); SODIUM 140 mmol/L (136-145); TOTAL PROTEIN 6.5 gm/dL (6.4-8.2)
[2019-08-22 02:57] LABS: TROPONIN I < 0.015 ng/ml (<0.045)
[2019-08-22 03:59] LABS: BILIRUBIN NEGATIVE (NEGATIVE); CLARITY CLEAR (CLEAR); COLOR YELLOW (YELLOW); GLUCOSE TRACE (NEGATIVE); KETONE NEGATIVE (NEGATIVE)
[2019-08-22 04:00] LABS: BLOOD NEGATIVE (NEGATIVE); LEUKO ESTERASE NEGATIVE (NEGATIVE); NITRITE NEGATIVE (NEGATIVE); SPECIFIC GRAVITY 1.025 (1.005-1.030); UROBILINOGEN 0.2 E.U./dl (0.2-1.0)
[2019-08-22 04:06] LABS: EPITHELIAL CELLS 15-20; RBC 0-2 rbc/hpf (0-2); WBC 0-2 wbc/hpf (0-5)
== END 2019-08-22 05:15 | disposition home or self-care (01) ==
LOC: ED 01:48
PROVIDERS: Emergency Medicine Emergency Medical Services
DX: M19.032 Primary osteoarthritis, left wrist (principal); R07.89 Other chest pain; M25.519 Pain in unspecified shoulder; J45.909 Unspecified asthma, uncomplicated; E66.01 Morbid (severe) obesity due to excess calories; I25.10 Atherosclerotic heart disease of native coronary artery without angina pectoris; I25.2 Old myocardial infarction; E11.22 Type 2 diabetes mellitus with diabetic chronic kidney disease; I12.9 Hypertensive chronic kidney disease with stage 1 through stage 4 chronic kidney disease, or unspecified chronic kidney disease; N18.3 Chronic kidney disease, stage 3 (moderate); Z68.43 Body mass index [BMI] 50.0-59.9, adult; Z86.73 Personal history of transient ischemic attack (TIA), and cerebral infarction without residual deficits; Z98.61 Coronary angioplasty status; Z88.0 Allergy status to penicillin; Z88.1 Allergy status to other antibiotic agents; Z88.8 Allergy status to other drugs, medicaments and biological substances; Z79.899 Other long term (current) drug therapy; Z79.82 Long term (current) use of aspirin; Z79.4 Long term (current) use of insulin; Z98.890 Other specified postprocedural states

== ENCOUNTER → 2019-08-31 | Outpatient (CLI) | payer MEDICARE, OTHER | END | disposition home or self-care (01) | LOC: RESCLI 05:42 | DX: E11.65 Type 2 diabetes mellitus with hyperglycemia (principal); I25.10 Atherosclerotic heart disease of native coronary artery without angina pectoris; B37.2 Candidiasis of skin and nail; N90.4 Leukoplakia of vulva; I10 Essential (primary) hypertension; E78.5 Hyperlipidemia, unspecified; G89.29 Other chronic pain; K21.9 Gastro-esophageal reflux disease without esophagitis; F41.9 Anxiety disorder, unspecified; M54.32 Sciatica, left side; E66.01 Morbid (severe) obesity due to excess calories; R60.9 Edema, unspecified; Z79.899 Other long term (current) drug therapy; Z88.0 Allergy status to penicillin; Z88.8 Allergy status to other drugs, medicaments and biological substances ==

== ENCOUNTER → 2020-02-03 | Outpatient (CLI) | payer MEDICARE | END | disposition home or self-care (01) | LOC: RESCLI 03:59 | DX: I25.10 Atherosclerotic heart disease of native coronary artery without angina pectoris (principal); E11.65 Type 2 diabetes mellitus with hyperglycemia; R60.9 Edema, unspecified; N90.4 Leukoplakia of vulva; B37.2 Candidiasis of skin and nail; I10 Essential (primary) hypertension; E78.5 Hyperlipidemia, unspecified; G89.29 Other chronic pain; K21.9 Gastro-esophageal reflux disease without esophagitis; F41.9 Anxiety disorder, unspecified; E83.42 Hypomagnesemia; Z12.31 Encounter for screening mammogram for malignant neoplasm of breast; Z12.11 Encounter for screening for malignant neoplasm of colon; Z12.4 Encounter for screening for malignant neoplasm of cervix; Z79.899 Other long term (current) drug therapy; Z78.0 Asymptomatic menopausal state; Z98.890 Other specified postprocedural states; Z88.0 Allergy status to penicillin; Z88.8 Allergy status to other drugs, medicaments and biological substances ==

== ENCOUNTER 2020-03-13 22:30 | Observation (INO) | payer MEDICARE, MEDICAID ==
[~2020-03-13] VITALS: Ht 167.6 cm; Wt 178.0 kg
[2020-03-13 22:41] VITALS: BP 141/62
[2020-03-13 23:04] LABS: BASO % 0.4 % (0.0-1.0); EOS # 0.2 10*3/uL (0.0-0.4); EOS % 2.3 % (1.0-4.0); HEMATOCRIT 43.7 % (37.0-47.0); LYMPH # 2.9 10*3/uL (1.3-4.4); LYMPH % 30.3 % (27.0-41.0); MEAN CORPUSCULAR HGB 30.4 pg (27.0-31.0); MEAN CORPUSCULAR HGB CONC 32.7 g/dl (33.0-37.0); MEAN PLATELET VOLUME 11.5 fl (9.6-12.3); MONO # 0.7 10*3/uL (0.1-1.0); MONO % 6.8 % (3.0-9.0); NEUT # 5.8 10*3/uL (2.3-7.9); PLATELET COUNT AUTOMATED 208 10*3/uL (130-400); RED CELL DISTRI WIDTH 13.2 % (0-14.5); WHITE BLOOD COUNT 9.7 10*3/uL (4.8-10.8)
[2020-03-13 23:18] LABS: ACT PARTIAL THROMBO TIME 28.1 SECONDS (20.0-32.1)
[2020-03-13 23:19] LABS: ALBUMIN 3.7 gm/dl (3.1-4.5); ALKALINE PHOSPHATASE 71 U/L (45-117); BUN 22 mg/dl (7-24); CHLORIDE 107 mmol/L (98-107); CREATININE 1.36 mg/dL (0.55-1.02); POTASSIUM 4.4 mmol/L (3.5-5.1); SGOT/AST 10 IU/L (3-35); SGPT/ALT 17 U/L (12-78); SODIUM 141 mmol/L (136-145); TOTAL PROTEIN 7.4 gm/dL (6.4-8.2)
[2020-03-13 23:20] LABS: TROPONIN I < 0.015 ng/ml (<0.045)
[2020-03-14] VITALS (7 sets, daily range): BP systolic 113–155; BP diastolic 50–99
[2020-03-14] MEDS ORDERED: TOPROL XL50 M1 PO (01:18)
[2020-03-15] VITALS: BP 133/48
[2020-03-15 06:53] LABS: BASO % 0.3 % (0.0-1.0); EOS # 0.1 10*3/uL (0.0-0.4); HEMATOCRIT 39.5 % (37.0-47.0); LYMPH # 2.1 10*3/uL (1.3-4.4); MEAN CELL VOLUME 94.3 fl (81.0-99.0); MEAN CORPUSCULAR HGB 30.5 pg (27.0-31.0); MEAN CORPUSCULAR HGB CONC 32.4 g/dl (33.0-37.0); MEAN PLATELET VOLUME 11.7 fl (9.6-12.3); MONO # 0.4 10*3/uL (0.1-1.0); MONO % 7.3 % (3.0-9.0); NEUT # 3.3 10*3/uL (2.3-7.9); NEUT % 55.2 % (47.0-73.0); PLATELET COUNT AUTOMATED 156 10*3/uL (130-400); RED BLOOD COUNT 4.19 10*6/uL (4.10-5.10); RED CELL DISTRI WIDTH 13.2 % (0-14.5)
[2020-03-15 07:26] LABS: ALBUMIN 3.2 gm/dl (3.1-4.5); ALKALINE PHOSPHATASE 56 U/L (45-117); BUN 19 mg/dl (7-24); CHLORIDE 107 mmol/L (98-107); CREATININE 1.05 mg/dL (0.55-1.02); FREE T4 1.15 ng/dl (0.76-1.46); POTASSIUM 4.4 mmol/L (3.5-5.1); SGOT/AST 11 IU/L (3-35); SGPT/ALT 16 U/L (12-78); SODIUM 141 mmol/L (136-145); TOTAL PROTEIN 6.4 gm/dL (6.4-8.2)
[2020-03-15 08:00] VITALS: BP 120/56
[2020-03-15 12:00] VITALS: BP 107/76
[2020-03-15] MEDS ORDERED: PANTOPRAZOLE SO40 MG PO (13:40)
[2020-03-15] MEDS ORDERED: ASPIRIN ADULT L81 M2 PO (13:40)
[2020-03-15] MEDS ORDERED: CARDIZEM CD120 M2 PO (13:40)
== END 2020-03-15 14:55 | disposition home or self-care (01) ==
LOC: ED 22:30 → EDHOLD 03-14 00:06 → 4E 03-14 00:14
PROVIDERS: Internal Medicine; Nurse Practitioner Family; ADMIT Student in an Organized Health Care Education/Training Program; ATTEND Student in an Organized Health Care Education/Training Program
DX: R00.0 Tachycardia, unspecified (principal); R07.89 Other chest pain; F41.1 Generalized anxiety disorder; I12.9 Hypertensive chronic kidney disease with stage 1 through stage 4 chronic kidney disease, or unspecified chronic kidney disease; N18.3 Chronic kidney disease, stage 3 (moderate); E66.01 Morbid (severe) obesity due to excess calories; Z68.43 Body mass index [BMI] 50.0-59.9, adult

== ENCOUNTER 2020-04-03 22:12 | Emergency (ER) | payer MEDICARE, MEDICAID ==
[~2020-04-03] VITALS: Ht 170.1 cm; Wt 181.0 kg
[~2020-04-03 22:12] MED LIST changes: +ASPIRIN ADULT L81 M2 PO; +CARDIZEM CD120 M2 PO; +PANTOPRAZOLE SO40 MG PO; +TOPROL XL50 M1 PO
[2020-04-03] MEDS ORDERED: KENALOG 0.1%80 GM T (23:37)
== END 2020-04-03 23:56 | disposition home or self-care (01) ==
LOC: ED 22:12
DX: L42 Pityriasis rosea (principal); I10 Essential (primary) hypertension; E11.9 Type 2 diabetes mellitus without complications; I25.2 Old myocardial infarction; Z88.8 Allergy status to other drugs, medicaments and biological substances; Z79.899 Other long term (current) drug therapy; Z86.73 Personal history of transient ischemic attack (TIA), and cerebral infarction without residual deficits

== ENCOUNTER 2020-04-12 14:19 | Inpatient (IN) | payer MEDICARE, MEDICAID ==
[~2020-04-12] VITALS: Ht 170.2 cm; Wt 172.4 kg
[~2020-04-12 14:19] MED LIST changes: +KENALOG 0.1%80 GM T
[2020-04-12 15:04] VITALS: BP 118/55
--- NOTE | 2020-04-12 17:08 | NUR ---
PT POSITIONED FOR COMFORT WITH [employer] INTACT AND CALL LIGHT WITHIN REACH,NO ADDITIONAL COMPLAINTS VOICED.
[2020-04-12 17:27] VITALS: BP 120/60
[2020-04-12 18:08] LABS: BASO # 0.1 10*3/uL (0.0-0.1); BASO % 0.5 % (0.0-1.0); EOS # 0.2 10*3/uL (0.0-0.4); EOS % 1.7 % (1.0-4.0); LYMPH # 2.5 10*3/uL (1.3-4.4); LYMPH % 24.5 % (27.0-41.0); MEAN CELL VOLUME 93.2 fl (81.0-99.0); MEAN CORPUSCULAR HGB 29.8 pg (27.0-31.0); MEAN PLATELET VOLUME 11.3 fl (9.6-12.3); MONO # 0.8 10*3/uL (0.1-1.0); MONO % 7.9 % (3.0-9.0); NEUT # 6.6 10*3/uL (2.3-7.9); NEUT % 65.2 % (47.0-73.0); PLATELET COUNT AUTOMATED 228 10*3/uL (130-400); RED CELL DISTRI WIDTH 13.2 % (0-14.5); WHITE BLOOD COUNT 10.2 10*3/uL (4.8-10.8)
[2020-04-12 18:24] LABS: ALBUMIN 3.5 gm/dl (3.1-4.5); CREATININE 1.36 mg/dL (0.55-1.02); POTASSIUM 4.8 mmol/L (3.5-5.1); TOTAL PROTEIN 7.2 gm/dL (6.4-8.2)
--- NOTE | 2020-04-12 19:26 | NUR ---
DR REECE IN TO EVALUATE PT @ THIS TIME,PT W/O ADDITIONAL COMPLAINTS VOICED.
[2020-04-12 19:36] LABS: BILIRUBIN NEGATIVE; BLOOD NEGATIVE (NEGATIVE); CLARITY CLEAR (CLEAR); COLOR YELLOW (YELLOW); GLUCOSE NEGATIVE; KETONE NEGATIVE; LEUKO ESTERASE NEGATIVE (NEGATIVE); NITRITE NEGATIVE (NEGATIVE); SPECIFIC GRAVITY 1.015 (1.001-1.030)
[2020-04-12 19:41] LABS: BACTERIA 1+; RBC 0-2 rbc/hpf (0-2)
--- NOTE | 2020-04-12 19:55 | NUR ---
PT PROVIDED A BOX LUNCH AND KRZYSZTOF ANTONIO,CALL LIGHT WITHIN REACH.
[2020-04-12] MEDS ORDERED: SULFAMETHOXAZOLE-TMP (20:17)
[2020-04-12 21:12] VITALS: BP 122/64
--- NOTE | 2020-04-12 21:29 | NUR ---
REPORT TO LORE FISCHER.
[2020-04-12 22:10] VITALS: BP 137/68
--- NOTE | 2020-04-12 22:10 | NUR ---
Time: 2209 A 64 year old FEMALE admitted to [facility] under services of VANESSA GUAMAN DO, Pt. arrived via stretcher from ER. Chief complaint: CELLULITIS. CECIL SHIPLEY
[2020-04-12] MEDS ORDERED: IMDUR SA60 M1 PO (23:05)
--- NOTE | 2020-04-13 00:10 | NUR ---
CALLED DR PENNY AND NOTIFIED HER OF PT. LEGS HURTING AND WOULD LIKE SOMETHING FOR PAIN. ORDER TO BE RECEIVED.
--- NOTE | 2020-04-13 00:32 | NUR ---
PATIENT C/O LOWER LEG PAIN RATED "7" NORCO GIVEN FOR PAIN. FLEXERIL GIVEN PER ORDER AND PATIENT REQUEST PATIENT TAKES THIS BEFORE BED AT HOME FOR MUSCLE CRAMPS.
--- NOTE | 2020-04-13 01:30 | NUR ---
FLEXERIL AND NORCO EFFECTIVE PATIENT SLEEP WITH SNORING RESP.
--- NOTE | 2020-04-13 06:48 | NUR ---
CALLED DR. ELLER ANSWERING SERVICE AND NOTIFIED OF CONSULT INFORMATION GIVEN.
[2020-04-13 06:50] LABS: BASO % 0.4 % (0.0-1.0); EOS # 0.1 10*3/uL (0.0-0.4); EOS % 1.5 % (1.0-4.0); HEMATOCRIT 38.4 % (37.0-47.0); LYMPH # 2.6 10*3/uL (1.3-4.4); LYMPH % 36.4 % (27.0-41.0); MEAN CELL VOLUME 95.8 fl (81.0-99.0); MEAN CORPUSCULAR HGB 29.9 pg (27.0-31.0); MEAN CORPUSCULAR HGB CONC 31.3 g/dl (33.0-37.0); MEAN PLATELET VOLUME 11.4 fl (9.6-12.3); MONO # 0.5 10*3/uL (0.1-1.0); MONO % 6.7 % (3.0-9.0); NEUT # 3.9 10*3/uL (2.3-7.9); NEUT % 54.7 % (47.0-73.0); PLATELET COUNT AUTOMATED 180 10*3/uL (130-400); RED BLOOD COUNT 4.01 10*6/uL (4.10-5.10); RED CELL DISTRI WIDTH 13.2 % (0-14.5); WHITE BLOOD COUNT 7.2 10*3/uL (4.8-10.8)
[2020-04-13 07:22] LABS: CREATININE 1.33 mg/dL (0.55-1.02); POTASSIUM 4.8 mmol/L (3.5-5.1)
[2020-04-13 07:26] LABS: TOTAL PROTEIN 6.3 gm/dL (6.4-8.2)
[2020-04-13 08:00] VITALS: BP 135/72
--- NOTE | 2020-04-13 09:20 | NUR ---
PT TO US VIA WC
--- NOTE | 2020-04-13 11:15 | NUR ---
Economic Forecaster in to talk to patient. Patient states lives at HOME with DAUGHTER AND SON IN LAW. There are 10 steps in the home. Physician: [facility] Home health services: NONE Patient's level of ADLs: INDEPENDENT Patient has working utilities: YES DME: NONE Follow-up physician's appointment after d/c: WILL BE MADE BY HOSPITALIST NURSE DIRECTOR ON DISCHARGE Does patient want to access PORTAL?: NO Discharge plan PT LIVES AT HOME WITH HER DAUGHTER AND SON IN LAW. STATES SHE IS INDEPENDENT IN HER CARE. STATES SHE WILL OCCASIONALLY USE A CANE IF NEEDED. PT DELINES SHE WILL HAVE ANY NEEDS ON DISCHARGE. STATES SHE LIVES WITH HER DAUGHTER WHO IS AN RN. PLAN IS TO RETURN HOME WITH DAUGHTER WHEN MEDICALLY STABLE. WILL CONTINUE TO FOLLOW. PT STATES SHE WILL HAVE A RIDE HOME. . SAMUEL LAKHANI
--- NOTE | 2020-04-13 11:35 | NUR ---
DR BENJAMIN HERE TO SEE PT
[2020-04-13 12:00] VITALS: BP 105/54
[2020-04-13 16:00] VITALS: BP 111/53
--- NOTE | 2020-04-13 19:35 | NUR ---
24 HR chart check completed.
[2020-04-13 20:00] VITALS: BP 152/70
--- NOTE | 2020-04-13 21:50 | NUR ---
ROSALBA GIVEN PER ORDER FOR PAIN LEFT LEG RATED "6" AND GENERAL BODY ACHES SEE MAR.
--- NOTE | 2020-04-13 22:50 | NUR ---
ROSALBA EFFECTIVE PER PT.
[2020-04-14] VITALS: BP 143/63
--- NOTE | 2020-04-14 04:13 | NUR ---
UP TO BATHROOM VOIDED.
[2020-04-14 07:37] LABS: HEMATOCRIT 41.4 % (37.0-47.0); LYMPH # 1.1 10*3/uL (1.3-4.4); LYMPH % 10.8 % (27.0-41.0); MEAN CELL VOLUME 93.2 fl (81.0-99.0); MEAN CORPUSCULAR HGB 30.4 pg (27.0-31.0); MEAN CORPUSCULAR HGB CONC 32.6 g/dl (33.0-37.0); MEAN PLATELET VOLUME 11.5 fl (9.6-12.3); MONO # 0.1 10*3/uL (0.1-1.0); MONO % 1.1 % (3.0-9.0); NEUT # 8.6 10*3/uL (2.3-7.9); NEUT % 87.4 % (47.0-73.0); PLATELET COUNT AUTOMATED 215 10*3/uL (130-400); RED BLOOD COUNT 4.44 10*6/uL (4.10-5.10); WHITE BLOOD COUNT 9.8 10*3/uL (4.8-10.8)
[2020-04-14 08:00] VITALS: BP 135/64
[2020-04-14 08:01] LABS: CREATININE 1.36 mg/dL (0.55-1.02); POTASSIUM 5.3 mmol/L (3.5-5.1)
[2020-04-14 12:00] VITALS: BP 129/69
--- NOTE | 2020-04-14 12:32 | NUR ---
PT CONTINUES TO DENY SHE WILL HAVE NEEDS ON DISCHARGE. PLANS TO RETURN HOME WHEN MEDICALLY STABLE. WILL CONTINUE TO FOLLOW.
[2020-04-14] MEDS ORDERED: METOPROLOL SUC100 M1 PO (16:04)
[2020-04-14] MEDS ORDERED: PREDNISONE50 MG PO (16:05)
--- NOTE | 2020-04-14 16:57 | NUR ---
Discharge instructions reviewed with patient/family. Patient receptive and verbalizes understanding. Follow-up care arranged. Written instructions given to patient/family. DANA CASILLAS
--- NOTE | 2020-04-14 17:42 | NUR ---
PT REFUSED D/C PICTURES
[2020-04-15 09:07] LABS: IMMUNOGLOBULIN G, QNT 796 mg/dL (586-1602)
[2020-04-17 08:06] LABS: IMMUNOGLOBULIN IgE 162 IU/mL (6-495)
== END 2020-04-14 16:57 | disposition home or self-care (01) | DRG 603 ==
LOC: ED 14:19 → EDHOLD 20:13 → 4NE 20:13 → 5E 04-14 16:24
PROVIDERS: Family Medicine; Internal Medicine; Student in an Organized Health Care Education/Training Program; ADMIT Internal Medicine; ATTEND Internal Medicine
DX: L03.116 Cellulitis of left lower limb (principal); I47.1 Supraventricular tachycardia; E44.0 Moderate protein-calorie malnutrition; Z68.43 Body mass index [BMI] 50.0-59.9, adult; R21 Rash and other nonspecific skin eruption; R82.71 Bacteriuria; I25.10 Atherosclerotic heart disease of native coronary artery without angina pectoris; E11.22 Type 2 diabetes mellitus with diabetic chronic kidney disease; N18.3 Chronic kidney disease, stage 3 (moderate); E78.5 Hyperlipidemia, unspecified; M19.032 Primary osteoarthritis, left wrist; F41.1 Generalized anxiety disorder; E87.8 Other disorders of electrolyte and fluid balance, not elsewhere classified; E55.9 Vitamin D deficiency, unspecified; E87.5 Hyperkalemia; T50.995A Adverse effect of other drugs, medicaments and biological substances, initial encounter; I12.9 Hypertensive chronic kidney disease with stage 1 through stage 4 chronic kidney disease, or unspecified chronic kidney disease; L27.0 Generalized skin eruption due to drugs and medicaments taken internally; Z82.49 Family history of ischemic heart disease and other diseases of the circulatory system; Z79.4 Long term (current) use of insulin; Z95.5 Presence of coronary angioplasty implant and graft; Z86.73 Personal history of transient ischemic attack (TIA), and cerebral infarction without residual deficits; I25.2 Old myocardial infarction; Z81.8 Family history of other mental and behavioral disorders; Z88.1 Allergy status to other antibiotic agents; Z88.0 Allergy status to penicillin; Z88.8 Allergy status to other drugs, medicaments and biological substances; Y92.89 Other specified places as the place of occurrence of the external cause

== ENCOUNTER 2020-04-26 21:26 | Emergency (ER) | payer MEDICARE, MEDICAID ==
[~2020-04-26] VITALS: Ht 170.1 cm; Wt 176.9 kg
[~2020-04-26 21:26] MED LIST changes: +IMDUR SA60 M1 PO; +METOPROLOL SUC100 M1 PO; +PREDNISONE50 MG PO; +SULFAMETHOXAZOLE-TMP
[2020-04-26 21:54] LABS: BASO % 0.3 % (0.0-1.0); EOS # 0.2 10*3/uL (0.0-0.4); EOS % 1.5 % (1.0-4.0); HEMATOCRIT 41.9 % (37.0-47.0); LYMPH % 23.5 % (27.0-41.0); MEAN CELL VOLUME 94.6 fl (81.0-99.0); MEAN CORPUSCULAR HGB 29.6 pg (27.0-31.0); MEAN CORPUSCULAR HGB CONC 31.3 g/dl (33.0-37.0); MEAN PLATELET VOLUME 11.3 fl (9.6-12.3); MONO # 0.8 10*3/uL (0.1-1.0); NEUT # 8.6 10*3/uL (2.3-7.9); NEUT % 68.5 % (47.0-73.0); PLATELET COUNT AUTOMATED 201 10*3/uL (130-400); RED BLOOD COUNT 4.43 10*6/uL (4.10-5.10); RED CELL DISTRI WIDTH 13.2 % (0-14.5); WHITE BLOOD COUNT 12.6 10*3/uL (4.8-10.8)
[2020-04-26 22:10] LABS: ALBUMIN 3.5 gm/dl (3.1-4.5); ALKALINE PHOSPHATASE 70 U/L (45-117); BUN 28 mg/dl (7-24); CHLORIDE 109 mmol/L (98-107); CREATININE 1.27 mg/dL (0.55-1.02); POTASSIUM 3.9 mmol/L (3.5-5.1); SGOT/AST 9 IU/L (3-35); SGPT/ALT 23 U/L (12-78); SODIUM 143 mmol/L (136-145); TOTAL PROTEIN 6.8 gm/dL (6.4-8.2)
[2020-04-26 22:13] LABS: ACT PARTIAL THROMBO TIME 27.2 SECONDS (20.0-32.1); INTERNATIONAL NORM RATIO 0.9 (2.0-3.5)
[2020-04-26 22:16] LABS: TROPONIN I < 0.015 ng/ml (<0.045)
== END 2020-04-27 05:01 | disposition home or self-care (01) ==
LOC: ED 21:26
PROVIDERS: Emergency Medicine
DX: R06.00 Dyspnea, unspecified (principal); R00.0 Tachycardia, unspecified; Z88.0 Allergy status to penicillin; Z88.1 Allergy status to other antibiotic agents; Z88.8 Allergy status to other drugs, medicaments and biological substances; Z79.899 Other long term (current) drug therapy

== ENCOUNTER → 2020-05-04 | Outpatient (CLI) | payer MEDICARE, MEDICAID | END | disposition home or self-care (01) | LOC: RESCLI 01:13 | PROVIDERS: ATTEND Internal Medicine | DX: I25.10 Atherosclerotic heart disease of native coronary artery without angina pectoris (principal); G89.29 Other chronic pain; K21.9 Gastro-esophageal reflux disease without esophagitis; F41.9 Anxiety disorder, unspecified; B37.2 Candidiasis of skin and nail; N94.0 Mittelschmerz; I10 Essential (primary) hypertension; E11.65 Type 2 diabetes mellitus with hyperglycemia; E78.2 Mixed hyperlipidemia; E55.9 Vitamin D deficiency, unspecified; R06.00 Dyspnea, unspecified; Z78.0 Asymptomatic menopausal state; Z11.59 Encounter for screening for other viral diseases; Z79.899 Other long term (current) drug therapy; Z23 Encounter for immunization; Z88.8 Allergy status to other drugs, medicaments and biological substances; Z95.828 Presence of other vascular implants and grafts; Z88.0 Allergy status to penicillin ==

== ENCOUNTER → 2020-05-16 | Outpatient (CLI) | payer MEDICARE, MEDICAID ==
[~2020-05-16] MED LIST changes: +SOTALOL HCL80 MG PO
== END | disposition home or self-care (01) ==
LOC: CARD 05-11 12:00
PROVIDERS: ATTEND Internal Medicine
DX: I35.0 Nonrheumatic aortic (valve) stenosis (principal); I51.7 Cardiomegaly

== ENCOUNTER 2020-05-26 20:51 | Inpatient (IN) | payer MEDICARE, MEDICAID ==
[~2020-05-26] VITALS: Ht 170.1 cm; Wt 181.2 kg
[~2020-05-26 20:51] MED LIST changes: -SOTALOL HCL80 MG PO
[2020-05-26 20:57] VITALS: BP 142/71
[2020-05-26 21:15] LABS: BASO % 0.3 % (0.0-1.0); EOS # 0.1 10*3/uL (0.0-0.4); HEMATOCRIT 42.3 % (37.0-47.0); LYMPH # 2.3 10*3/uL (1.3-4.4); LYMPH % 26.1 % (27.0-41.0); MEAN CELL VOLUME 95.7 fl (81.0-99.0); MEAN CORPUSCULAR HGB 29.9 pg (27.0-31.0); MEAN CORPUSCULAR HGB CONC 31.2 g/dl (33.0-37.0); MONO # 0.6 10*3/uL (0.1-1.0); MONO % 6.4 % (3.0-9.0); NEUT # 5.8 10*3/uL (2.3-7.9); PLATELET COUNT AUTOMATED 189 10*3/uL (130-400); RED BLOOD COUNT 4.42 10*6/uL (4.10-5.10); RED CELL DISTRI WIDTH 13.5 % (0-14.5); WHITE BLOOD COUNT 8.8 10*3/uL (4.8-10.8)
[2020-05-26 21:32] LABS: ACT PARTIAL THROMBO TIME 27.3 SECONDS (20.0-32.1)
[2020-05-26 21:33] LABS: ALBUMIN 3.5 gm/dl (3.1-4.5); ALKALINE PHOSPHATASE 77 U/L (45-117); BUN 24 mg/dl (7-24); CHLORIDE 107 mmol/L (98-107); CREATININE 1.27 mg/dL (0.55-1.02); POTASSIUM 4.5 mmol/L (3.5-5.1); SGOT/AST 10 IU/L (3-35); SGPT/ALT 15 U/L (12-78); SODIUM 141 mmol/L (136-145); TOTAL PROTEIN 6.9 gm/dL (6.4-8.2)
[2020-05-26 21:43] LABS: TROPONIN I < 0.015 ng/ml (<0.045)
[2020-05-26 23:50] VITALS: BP 135/45
[2020-05-27 03:41] LABS: BASO % 0.3 % (0.0-1.0); EOS # 0.1 10*3/uL (0.0-0.4); EOS % 1.3 % (1.0-4.0); LYMPH # 2.4 10*3/uL (1.3-4.4); LYMPH % 30.9 % (27.0-41.0); MEAN CELL VOLUME 95.5 fl (81.0-99.0); MEAN CORPUSCULAR HGB 29.4 pg (27.0-31.0); MEAN CORPUSCULAR HGB CONC 30.8 g/dl (33.0-37.0); MEAN PLATELET VOLUME 11.3 fl (9.6-12.3); MONO # 0.6 10*3/uL (0.1-1.0); MONO % 7.6 % (3.0-9.0); NEUT # 4.6 10*3/uL (2.3-7.9); NEUT % 59.8 % (47.0-73.0); PLATELET COUNT AUTOMATED 143 10*3/uL (130-400); RED BLOOD COUNT 3.98 10*6/uL (4.10-5.10); RED CELL DISTRI WIDTH 13.3 % (0-14.5); WHITE BLOOD COUNT 7.6 10*3/uL (4.8-10.8)
[2020-05-27 03:54] LABS: CREATININE 1.2 mg/dL (0.55-1.02); POTASSIUM 4.2 mmol/L (3.5-5.1)
[2020-05-27 05:40] VITALS: BP 132/79
[2020-05-27 09:00] VITALS: BP 130/70
[2020-05-27 11:46] VITALS: BP 132/78
[2020-05-27 16:00] VITALS: BP 114/59
[2020-05-27 20:00] VITALS: BP 133/54
[2020-05-28] VITALS: BP 145/47
[2020-05-28 06:57] LABS: CREATININE 1.11 mg/dL (0.55-1.02); POTASSIUM 3.9 mmol/L (3.5-5.1)
[2020-05-28 08:00] VITALS: BP 136/66
[2020-05-28 12:00] VITALS: BP 137/79
[2020-05-28 16:00] VITALS: BP 120/54
[2020-05-28 20:00] VITALS: BP 144/61
[2020-05-29] VITALS: BP 112/52
[2020-05-29 06:12] LABS: BUN 24 mg/dl (7-24); CHLORIDE 109 mmol/L (98-107); CREATININE 1.02 mg/dL (0.55-1.02); POTASSIUM 3.8 mmol/L (3.5-5.1); SODIUM 142 mmol/L (136-145)
[2020-05-29 08:00] VITALS: BP 126/58
[2020-05-29 12:00] VITALS: BP 121/62
[2020-05-29 16:00] VITALS: BP 131/63
[2020-05-29 20:00] VITALS: BP 139/60
[2020-05-30] VITALS: BP 132/76; BP 137/37
[2020-05-30 08:00] VITALS: BP 134/56
[2020-05-30] MEDS ORDERED: SOTALOL HCL80 MG PO (08:40)
== END 2020-05-30 10:26 | disposition home or self-care (01) | DRG 309 ==
LOC: ED 20:51 → EDHOLD 22:18 → 5E 22:18 → EDHOLD 22:19 → ED 22:19 → 5E 05-27 07:29 → EDHOLD 05-27 07:29 → 5E 05-27 15:24
PROVIDERS: Emergency Medicine; Internal Medicine; ADMIT Internal Medicine; ATTEND Internal Medicine
DX: I47.1 Supraventricular tachycardia (principal); G45.9 Transient cerebral ischemic attack, unspecified; Z68.44 Body mass index [BMI] 60.0-69.9, adult; E66.01 Morbid (severe) obesity due to excess calories; I25.10 Atherosclerotic heart disease of native coronary artery without angina pectoris; I12.9 Hypertensive chronic kidney disease with stage 1 through stage 4 chronic kidney disease, or unspecified chronic kidney disease; E78.5 Hyperlipidemia, unspecified; E87.8 Other disorders of electrolyte and fluid balance, not elsewhere classified; E11.65 Type 2 diabetes mellitus with hyperglycemia; N18.30 Chronic kidney disease, stage 3 unspecified; E11.22 Type 2 diabetes mellitus with diabetic chronic kidney disease; M19.032 Primary osteoarthritis, left wrist; R21 Rash and other nonspecific skin eruption; I08.2 Rheumatic disorders of both aortic and tricuspid valves; F41.1 Generalized anxiety disorder; I25.2 Old myocardial infarction; Z88.0 Allergy status to penicillin; Z88.1 Allergy status to other antibiotic agents; Z88.8 Allergy status to other drugs, medicaments and biological substances; Z95.5 Presence of coronary angioplasty implant and graft; Z98.891 History of uterine scar from previous surgery; Z82.49 Family history of ischemic heart disease and other diseases of the circulatory system; Z82.0 Family history of epilepsy and other diseases of the nervous system; Z82.3 Family history of stroke; Z83.3 Family history of diabetes mellitus; Z86.73 Personal history of transient ischemic attack (TIA), and cerebral infarction without residual deficits; Z85.828 Personal history of other malignant neoplasm of skin; Z79.82 Long term (current) use of aspirin; Z79.899 Other long term (current) drug therapy

== ENCOUNTER 2020-08-15 09:03 | Observation (INO) | payer MEDICARE, MEDICAID ==
[~2020-08-15] VITALS: Ht 170.1 cm; Wt 182.2 kg
[~2020-08-15 09:03] MED LIST changes: +SOTALOL HCL80 MG PO
[2020-08-15 09:30] LABS: BASO % 0.3 % (0.0-1.0); EOS # 0.1 10*3/uL (0.0-0.4); EOS % 1.7 % (1.0-4.0); HEMATOCRIT 42.3 % (37.0-47.0); LYMPH % 27.3 % (27.0-41.0); MEAN CELL VOLUME 92.4 fl (81.0-99.0); MEAN CORPUSCULAR HGB 29.7 pg (27.0-31.0); MEAN CORPUSCULAR HGB CONC 32.2 g/dl (33.0-37.0); MEAN PLATELET VOLUME 11.7 fl (9.6-12.3); MONO # 0.5 10*3/uL (0.1-1.0); NEUT # 4.6 10*3/uL (2.3-7.9); NEUT % 63.6 % (47.0-73.0); PLATELET COUNT AUTOMATED 186 10*3/uL (130-400); RED BLOOD COUNT 4.58 10*6/uL (4.10-5.10); RED CELL DISTRI WIDTH 12.7 % (0-14.5); WHITE BLOOD COUNT 7.2 10*3/uL (4.8-10.8)
[2020-08-15 09:35] VITALS: BP 112/64
[2020-08-15 09:46] VITALS: BP 102/68
[2020-08-15 09:46] LABS: ALBUMIN 3.3 gm/dl (3.1-4.5); ALKALINE PHOSPHATASE 72 U/L (45-117); BUN 23 mg/dl (7-24); CHLORIDE 109 mmol/L (98-107); CREATININE 1.24 mg/dL (0.55-1.02); POTASSIUM 4.1 mmol/L (3.5-5.1); SGOT/AST 7 IU/L (3-35); SGPT/ALT 16 U/L (12-78); SODIUM 140 mmol/L (136-145); TOTAL PROTEIN 6.7 gm/dL (6.4-8.2)
[2020-08-15 09:49] LABS: TROPONIN I < 0.015 ng/ml (<0.045)
[2020-08-15 09:52] LABS: FREE T4 1.11 ng/dl (0.76-1.46)
[2020-08-15 09:53] LABS: ACT PARTIAL THROMBO TIME 28.2 SECONDS (20.0-32.1); INTERNATIONAL NORM RATIO 0.9 (2.0-3.5)
[2020-08-15 09:57] LABS: THYROID STIM HORMONE (HS) 2.53 uIU/ml (0.358-4.75)
[2020-08-15 11:09] VITALS: BP 106/62
[2020-08-15 11:45] VITALS: BP 140/54
[2020-08-15] MEDS ORDERED: VITAMIN D3 PO (12:14)
[2020-08-15] MEDS ORDERED: PEPCID20 MG PO (12:16)
[2020-08-15] MEDS ORDERED: COLACE100 MG PO (12:16)
[2020-08-15 13:31] LABS: BILIRUBIN Negative (Negative); BLOOD Negative (Negative); CLARITY Clear (Clear); COLOR Yellow (Yellow); GLUCOSE Negative (Negative); KETONE Negative (Negative); LEUKO ESTERASE Negative (Negative); NITRITE Negative (Negative); SPECIFIC GRAVITY 1.015 (1.001-1.030); UROBILINOGEN 0.2 E.U./dl (0.0-1.0)
[2020-08-15 13:50] LABS: BACTERIA 2+
[2020-08-15 16:00] VITALS: BP 143/57
[2020-08-15 20:00] VITALS: BP 139/58
[2020-08-16] VITALS: BP 104/54
[2020-08-16 06:39] LABS: BASO % 0.4 % (0.0-1.0); EOS # 0.1 10*3/uL (0.0-0.4); EOS % 1.2 % (1.0-4.0); HEMATOCRIT 42.4 % (37.0-47.0); LYMPH # 2.3 10*3/uL (1.3-4.4); LYMPH % 29.7 % (27.0-41.0); MEAN CORPUSCULAR HGB 29.9 pg (27.0-31.0); MEAN CORPUSCULAR HGB CONC 31.8 g/dl (33.0-37.0); MEAN PLATELET VOLUME 11.8 fl (9.6-12.3); MONO # 0.5 10*3/uL (0.1-1.0); MONO % 6.2 % (3.0-9.0); NEUT # 4.8 10*3/uL (2.3-7.9); NEUT % 62.2 % (47.0-73.0); PLATELET COUNT AUTOMATED 186 10*3/uL (130-400); RED BLOOD COUNT 4.51 10*6/uL (4.10-5.10); RED CELL DISTRI WIDTH 12.6 % (0-14.5); WHITE BLOOD COUNT 7.6 10*3/uL (4.8-10.8)
[2020-08-16 06:56] LABS: ALBUMIN 3.3 gm/dl (3.1-4.5); CREATININE 1.11 mg/dL (0.55-1.02); POTASSIUM 4.3 mmol/L (3.5-5.1); TOTAL PROTEIN 6.4 gm/dL (6.4-8.2)
[2020-08-16 07:02] LABS: FREE T4 1.2 ng/dl (0.76-1.46); THYROID STIM HORMONE (HS) 3.66 uIU/ml (0.358-4.75)
[2020-08-16 07:32] LABS: VITAMIN D, 25-HYDROXY 38.9 ng/mL (30-100)
[2020-08-16 08:00] VITALS: BP 136/59
[2020-08-16 10:24] VITALS: BP 139/67
[2020-08-16 12:00] VITALS: BP 135/66
== END 2020-08-16 16:06 | disposition home or self-care (01) ==
LOC: ED 09:03 → EDHOLD 11:05 → 5E 11:19
PROVIDERS: Family Medicine; Nurse Practitioner; Registered Nurse; ADMIT Internal Medicine; ATTEND Internal Medicine
DX: I25.119 Atherosclerotic heart disease of native coronary artery with unspecified angina pectoris (principal); N17.9 Acute kidney failure, unspecified; M54.9 Dorsalgia, unspecified; E78.5 Hyperlipidemia, unspecified; E11.65 Type 2 diabetes mellitus with hyperglycemia; E66.01 Morbid (severe) obesity due to excess calories; I25.2 Old myocardial infarction; K21.9 Gastro-esophageal reflux disease without esophagitis; I25.9 Chronic ischemic heart disease, unspecified; E11.22 Type 2 diabetes mellitus with diabetic chronic kidney disease; E55.9 Vitamin D deficiency, unspecified; I12.9 Hypertensive chronic kidney disease with stage 1 through stage 4 chronic kidney disease, or unspecified chronic kidney disease; N18.32 Chronic kidney disease, stage 3b; Z95.5 Presence of coronary angioplasty implant and graft; Z85.828 Personal history of other malignant neoplasm of skin; Z98.890 Other specified postprocedural states

== ENCOUNTER → 2021-01-31 | Outpatient (CLI) | payer OTHER, MEDICAID ==
[~2021-01-31] MED LIST changes: +COLACE100 MG PO; +GABAPENTIN100 M2 PO; +GUMMI BEAR MUL1 EACH PO; +K-TAB20 MEQ PO; +LASIX40 MG PO; +PEPCID20 MG PO; +VITAMIN D3 PO
[2021-01-31 12:52] LABS: ALBUMIN 3.6 gm/dl (3.1-4.5); POTASSIUM 4.4 mmol/L (3.5-5.1)
[2021-01-31 12:53] LABS: CREATININE 1.33 mg/dL (0.55-1.02); TOTAL PROTEIN 7.1 gm/dL (6.4-8.2)
== END | disposition home or self-care (01) ==
LOC: LAB 11:34
PROVIDERS: ATTEND Internal Medicine Cardiovascular Disease
DX: I50.9 Heart failure, unspecified (principal)

== ENCOUNTER 2021-02-05 12:44 | Inpatient (IN) | payer OTHER, MEDICAID ==
[~2021-02-05] VITALS: Ht 167.6 cm; Wt 184.3 kg
[~2021-02-05 12:44] MED LIST changes: -GABAPENTIN100 M2 PO; -GUMMI BEAR MUL1 EACH PO; -K-TAB20 MEQ PO; -LASIX40 MG PO
[2021-02-05 12:51] VITALS: BP 182/76
[2021-02-05 13:19] LABS: BASO % 0.6 % (0.0-1.0); EOS # 0.1 10*3/uL (0.0-0.4); EOS % 1.1 % (1.0-4.0); HEMATOCRIT 42.5 % (37.0-47.0); LYMPH # 1.9 10*3/uL (1.3-4.4); LYMPH % 26.5 % (27.0-41.0); MEAN CELL VOLUME 96.8 fl (81.0-99.0); MEAN CORPUSCULAR HGB 30.5 pg (27.0-31.0); MEAN CORPUSCULAR HGB CONC 31.5 g/dl (33.0-37.0); MEAN PLATELET VOLUME 11.5 fl (9.6-12.3); MONO # 0.5 10*3/uL (0.1-1.0); MONO % 6.6 % (3.0-9.0); NEUT # 4.6 10*3/uL (2.3-7.9); NEUT % 64.9 % (47.0-73.0); PLATELET COUNT AUTOMATED 159 10*3/uL (130-400); RED BLOOD COUNT 4.39 10*6/uL (4.10-5.10); RED CELL DISTRI WIDTH 12.7 % (0-14.5); WHITE BLOOD COUNT 7.1 10*3/uL (4.8-10.8)
[2021-02-05 13:35] LABS: ALBUMIN 3.4 gm/dl (3.1-4.5); ALKALINE PHOSPHATASE 65 U/L (45-117); BUN 21 mg/dl (7-24); CHLORIDE 109 mmol/L (98-107); POTASSIUM 4.3 mmol/L (3.5-5.1); SGOT/AST 11 IU/L (3-35); SGPT/ALT 17 U/L (12-78); SODIUM 139 mmol/L (136-145); TOTAL PROTEIN 6.7 gm/dL (6.4-8.2)
[2021-02-05 13:40] LABS: TROPONIN I < 0.015 ng/ml (<0.045)
[2021-02-05 14:23] VITALS: BP 130/68
[2021-02-05 16:00] VITALS: BP 122/91
[2021-02-05 20:00] VITALS: BP 122/91
[2021-02-05] MEDS ORDERED: ZETIA10 MG PO (21:00)
[2021-02-05] MEDS ORDERED: GABAPENTIN100 M2 PO (21:06)
[2021-02-06 00:28] VITALS: BP 136/56
[2021-02-06 04:21] VITALS: BP 127/83
[2021-02-06 05:37] LABS: ALBUMIN 3.4 gm/dl (3.1-4.5); CREATININE 1.18 mg/dL (0.55-1.02); TOTAL PROTEIN 6.5 gm/dL (6.4-8.2)
[2021-02-06 06:06] LABS: BASO % 0.5 % (0.0-1.0); EOS # 0.1 10*3/uL (0.0-0.4); EOS % 1.1 % (1.0-4.0); HEMATOCRIT 42.7 % (37.0-47.0); LYMPH # 2.1 10*3/uL (1.3-4.4); LYMPH % 31.4 % (27.0-41.0); MEAN CELL VOLUME 96.4 fl (81.0-99.0); MEAN CORPUSCULAR HGB 30.5 pg (27.0-31.0); MEAN CORPUSCULAR HGB CONC 31.6 g/dl (33.0-37.0); MONO # 0.6 10*3/uL (0.1-1.0); MONO % 8.7 % (3.0-9.0); NEUT # 3.9 10*3/uL (2.3-7.9); NEUT % 58.1 % (47.0-73.0); PLATELET COUNT AUTOMATED 144 10*3/uL (130-400); RED BLOOD COUNT 4.43 10*6/uL (4.10-5.10); RED CELL DISTRI WIDTH 12.8 % (0-14.5); WHITE BLOOD COUNT 6.7 10*3/uL (4.8-10.8)
[2021-02-06 06:27] VITALS: BP 129/74
[2021-02-06 08:26] VITALS: BP 147/70
[2021-02-06] MEDS ORDERED: GUMMI BEAR MUL1 EACH PO (10:41)
[2021-02-06] MEDS ORDERED: NEURONTIN100 MG PO ×2 (10:42→10:43)
[2021-02-06] MEDS ORDERED: K-TAB20 MEQ PO (15:07)
[2021-02-06] MEDS ORDERED: LASIX40 MG PO ×2 (15:07)
[2021-02-06 16:00] VITALS: BP 108/93
[2021-02-06 20:00] VITALS: BP 122/91
[2021-02-07] VITALS: BP 103/41
[2021-02-07 08:00] VITALS: BP 120/90
[2021-02-07 09:38] LABS: CREATININE 1.31 mg/dL (0.55-1.02); POTASSIUM 4.2 mmol/L (3.5-5.1)
[2021-02-07 09:43] LABS: BASO % 0.4 % (0.0-1.0); EOS # 0.1 10*3/uL (0.0-0.4); EOS % 1.1 % (1.0-4.0); HEMATOCRIT 46.6 % (37.0-47.0); LYMPH % 32.3 % (27.0-41.0); MEAN CELL VOLUME 94.9 fl (81.0-99.0); MEAN CORPUSCULAR HGB 30.5 pg (27.0-31.0); MEAN CORPUSCULAR HGB CONC 32.2 g/dl (33.0-37.0); MEAN PLATELET VOLUME 12.3 fl (9.6-12.3); MONO # 0.6 10*3/uL (0.1-1.0); MONO % 6.9 % (3.0-9.0); NEUT # 5.5 10*3/uL (2.3-7.9); PLATELET COUNT AUTOMATED 195 10*3/uL (130-400); RED BLOOD COUNT 4.91 10*6/uL (4.10-5.10); RED CELL DISTRI WIDTH 12.9 % (0-14.5); WHITE BLOOD COUNT 9.3 10*3/uL (4.8-10.8)
[2021-02-07] MEDS ORDERED: LASIX40 MG PO (10:53)
== END 2021-02-07 11:40 | disposition home or self-care (01) | DRG 291 ==
LOC: ED 12:44 → 5E 14:21 → EDHOLD 14:21 → 5E 02-06 06:55
PROVIDERS: Emergency Medicine; Family Medicine; Registered Nurse; ADMIT Internal Medicine; ATTEND Internal Medicine
DX: I13.0 Hypertensive heart and chronic kidney disease with heart failure and stage 1 through stage 4 chronic kidney disease, or unspecified chronic kidney disease (principal); I50.31 Acute diastolic (congestive) heart failure; Z68.44 Body mass index [BMI] 60.0-69.9, adult; E11.65 Type 2 diabetes mellitus with hyperglycemia; N18.32 Chronic kidney disease, stage 3b; K21.9 Gastro-esophageal reflux disease without esophagitis; I25.10 Atherosclerotic heart disease of native coronary artery without angina pectoris; E78.2 Mixed hyperlipidemia; F41.1 Generalized anxiety disorder; E66.01 Morbid (severe) obesity due to excess calories; E55.9 Vitamin D deficiency, unspecified; I48.0 Paroxysmal atrial fibrillation; E11.42 Type 2 diabetes mellitus with diabetic polyneuropathy; E78.5 Hyperlipidemia, unspecified; Z79.4 Long term (current) use of insulin; Z79.82 Long term (current) use of aspirin; Z79.899 Other long term (current) drug therapy; Z88.0 Allergy status to penicillin; Z88.2 Allergy status to sulfonamides; Z88.8 Allergy status to other drugs, medicaments and biological substances; Z82.49 Family history of ischemic heart disease and other diseases of the circulatory system; Z82.0 Family history of epilepsy and other diseases of the nervous system; I25.2 Old myocardial infarction

== ENCOUNTER 2021-02-25 23:49 | Emergency (ER) | payer OTHER, MEDICAID ==
[~2021-02-25] VITALS: Ht 162.5 cm; Wt 140.6 kg
[~2021-02-25 23:49] MED LIST changes: +GABAPENTIN100 M2 PO; +GUMMI BEAR MUL1 EACH PO; +K-TAB20 MEQ PO; +LASIX40 MG PO
[2021-02-26 01:14] LABS: BASO % 0.4 % (0.0-1.0); EOS # 0.1 10*3/uL (0.0-0.4); EOS % 1.6 % (1.0-4.0); HEMATOCRIT 42.9 % (37.0-47.0); LYMPH # 2.2 10*3/uL (1.3-4.4); LYMPH % 28.9 % (27.0-41.0); MEAN CELL VOLUME 96.2 fl (81.0-99.0); MEAN CORPUSCULAR HGB 30.7 pg (27.0-31.0); MEAN CORPUSCULAR HGB CONC 31.9 g/dl (33.0-37.0); MEAN PLATELET VOLUME 11.5 fl (9.6-12.3); MONO # 0.6 10*3/uL (0.1-1.0); MONO % 7.6 % (3.0-9.0); NEUT # 4.7 10*3/uL (2.3-7.9); NEUT % 61.2 % (47.0-73.0); PLATELET COUNT AUTOMATED 190 10*3/uL (130-400); RED BLOOD COUNT 4.46 10*6/uL (4.10-5.10); RED CELL DISTRI WIDTH 12.9 % (0-14.5); WHITE BLOOD COUNT 7.6 10*3/uL (4.8-10.8)
[2021-02-26 01:32] LABS: ALBUMIN 3.4 gm/dl (3.1-4.5); BUN 23 mg/dl (7-24); CHLORIDE 103 mmol/L (98-107); CREATININE 1.24 mg/dL (0.55-1.02); POTASSIUM 4.5 mmol/L (3.5-5.1); SGOT/AST 11 IU/L (3-35); SGPT/ALT 18 U/L (12-78); SODIUM 139 mmol/L (136-145); TOTAL PROTEIN 6.7 gm/dL (6.4-8.2)
[2021-02-26 01:35] LABS: ALKALINE PHOSPHATASE 68 U/L (45-117); TROPONIN I < 0.015 ng/ml (<0.045)
== END 2021-02-26 03:13 | disposition home or self-care (01) ==
LOC: ED 23:49
PROVIDERS: Emergency Medicine
DX: R53.83 Other fatigue (principal); R20.2 Paresthesia of skin; R06.02 Shortness of breath; I25.10 Atherosclerotic heart disease of native coronary artery without angina pectoris; Z88.0 Allergy status to penicillin; Z88.1 Allergy status to other antibiotic agents; Z88.8 Allergy status to other drugs, medicaments and biological substances; Z88.2 Allergy status to sulfonamides; Z79.899 Other long term (current) drug therapy; Z79.82 Long term (current) use of aspirin; Z79.4 Long term (current) use of insulin; Z98.890 Other specified postprocedural states; Z98.51 Tubal ligation status; Z95.5 Presence of coronary angioplasty implant and graft

== ENCOUNTER 2021-04-22 00:59 | Emergency (ER) | payer OTHER, MEDICAID ==
[2021-04-22 01:38] LABS: BASO % 0.6 % (0.0-1.0); EOS # 0.1 10*3/uL (0.0-0.4); EOS % 1.4 % (1.0-4.0); HEMATOCRIT 42.5 % (37.0-47.0); LYMPH % 28.3 % (27.0-41.0); MEAN CELL VOLUME 96.4 fl (81.0-99.0); MEAN CORPUSCULAR HGB 30.2 pg (27.0-31.0); MEAN CORPUSCULAR HGB CONC 31.3 g/dl (33.0-37.0); MEAN PLATELET VOLUME 11.8 fl (9.6-12.3); MONO # 0.6 10*3/uL (0.1-1.0); MONO % 7.8 % (3.0-9.0); NEUT # 4.4 10*3/uL (2.3-7.9); NEUT % 61.5 % (47.0-73.0); PLATELET COUNT AUTOMATED 180 10*3/uL (130-400); RED BLOOD COUNT 4.41 10*6/uL (4.10-5.10); RED CELL DISTRI WIDTH 13.1 % (0-14.5); WHITE BLOOD COUNT 7.2 10*3/uL (4.8-10.8)
[2021-04-22 01:54] LABS: ALBUMIN 3.3 gm/dl (3.1-4.5); ALKALINE PHOSPHATASE 63 U/L (45-117); BUN 24 mg/dl (7-24); CHLORIDE 108 mmol/L (98-107); CREATININE 1.31 mg/dL (0.55-1.02); POTASSIUM 4.3 mmol/L (3.5-5.1); SGOT/AST 9 IU/L (3-35); SGPT/ALT 18 U/L (12-78); SODIUM 142 mmol/L (136-145); TOTAL PROTEIN 6.6 gm/dL (6.4-8.2)
[2021-04-22 01:55] LABS: TROPONIN I < 0.015 ng/ml (<0.045)
== END 2021-04-22 02:32 | disposition home or self-care (01) ==
LOC: ED 00:59
PROVIDERS: Internal Medicine
DX: R00.2 Palpitations (principal); N18.32 Chronic kidney disease, stage 3b; I25.2 Old myocardial infarction; I25.10 Atherosclerotic heart disease of native coronary artery without angina pectoris; Z88.0 Allergy status to penicillin; Z88.1 Allergy status to other antibiotic agents; Z88.2 Allergy status to sulfonamides; Z88.8 Allergy status to other drugs, medicaments and biological substances; Z79.899 Other long term (current) drug therapy; Z79.82 Long term (current) use of aspirin; Z79.4 Long term (current) use of insulin; Z98.890 Other specified postprocedural states

== ENCOUNTER → 2021-06-06 | Outpatient (CLI) | payer OTHER, MEDICAID ==
[~2021-06-06] MED LIST changes: +RANEXA500 M1 PO
== END | disposition home or self-care (01) ==
LOC: RESCLI 10:00
PROVIDERS: ATTEND Family Medicine
DX: G89.29 Other chronic pain (principal); I12.9 Hypertensive chronic kidney disease with stage 1 through stage 4 chronic kidney disease, or unspecified chronic kidney disease; E78.5 Hyperlipidemia, unspecified; E11.9 Type 2 diabetes mellitus without complications; Z88.0 Allergy status to penicillin; Z88.8 Allergy status to other drugs, medicaments and biological substances; Z98.890 Other specified postprocedural states

== ENCOUNTER → 2021-06-18 | Outpatient (CLI) | payer OTHER, MEDICAID ==
[2021-06-18 16:01] LABS: CREATININE 1.48 mg/dL (0.55-1.02); POTASSIUM 4.5 mmol/L (3.5-5.1)
== END | disposition home or self-care (01) ==
LOC: RESCLI 00:52
PROVIDERS: Internal Medicine Cardiovascular Disease; ATTEND Internal Medicine Nephrology
DX: G89.29 Other chronic pain (principal); I25.10 Atherosclerotic heart disease of native coronary artery without angina pectoris; I13.0 Hypertensive heart and chronic kidney disease with heart failure and stage 1 through stage 4 chronic kidney disease, or unspecified chronic kidney disease; N18.30 Chronic kidney disease, stage 3 unspecified; I50.9 Heart failure, unspecified; E11.65 Type 2 diabetes mellitus with hyperglycemia; E78.2 Mixed hyperlipidemia; E55.9 Vitamin D deficiency, unspecified; F41.9 Anxiety disorder, unspecified; K59.00 Constipation, unspecified; I47.1 Supraventricular tachycardia; Z78.0 Asymptomatic menopausal state; Z88.0 Allergy status to penicillin; Z88.8 Allergy status to other drugs, medicaments and biological substances; Z79.82 Long term (current) use of aspirin; Z79.899 Other long term (current) drug therapy

== ENCOUNTER 2021-09-23 21:22 | Inpatient (IN) | payer OTHER, MEDICAID ==
[~2021-09-23] VITALS: Ht 167.6 cm; Wt 189.3 kg
[2021-09-23 21:55] VITALS: BP 127/56
[2021-09-23 22:11] LABS: BASO % 0.5 % (0.0-1.0); EOS # 0.2 10*3/uL (0.0-0.4); EOS % 1.8 % (1.0-4.0); HEMATOCRIT 42.7 % (37.0-47.0); LYMPH % 23.6 % (27.0-41.0); MEAN CELL VOLUME 94.1 fl (81.0-99.0); MEAN CORPUSCULAR HGB 30.6 pg (27.0-31.0); MEAN CORPUSCULAR HGB CONC 32.6 g/dl (33.0-37.0); MEAN PLATELET VOLUME 12.9 fl (9.6-12.3); MONO # 0.5 10*3/uL (0.1-1.0); MONO % 5.7 % (3.0-9.0); NEUT # 5.7 10*3/uL (2.3-7.9); NEUT % 68.3 % (47.0-73.0); PLATELET COUNT AUTOMATED 202 10*3/uL (130-400); RED BLOOD COUNT 4.54 10*6/uL (4.10-5.10); RED CELL DISTRI WIDTH 13.7 % (0-14.5); WHITE BLOOD COUNT 8.3 10*3/uL (4.8-10.8)
[2021-09-23 22:30] VITALS: BP 114/45
[2021-09-23 23:22] LABS: CREATININE 1.29 mg/dL (0.55-1.02); POTASSIUM 4.5 mmol/L (3.5-5.1); TOTAL PROTEIN 6.5 gm/dL (6.4-8.2)
[2021-09-23 23:46] VITALS: BP 122/46
[2021-09-23 23:50] LABS: ACT PARTIAL THROMBO TIME 26.4 SECONDS (20.0-32.1); INTERNATIONAL NORM RATIO 0.9 (2.0-3.5)
[2021-09-24] VITALS (10 sets, daily range): BP systolic 92–130; BP diastolic 40–85
[2021-09-24] MEDS ORDERED: NEURONTIN300 MG PO (05:30)
[2021-09-24] MEDS ORDERED: LASIX20 MG PO (05:33)
[2021-09-24 05:48] LABS: CREATININE 1.23 mg/dL (0.55-1.02); POTASSIUM 4.3 mmol/L (3.5-5.1); TOTAL PROTEIN 6.6 gm/dL (6.4-8.2)
[2021-09-24 05:55] LABS: THYROID STIM HORMONE (HS) 5.13 uIU/ml (0.358-4.75)
[2021-09-24 06:41] LABS: BASO % 0.4 % (0.0-1.0); EOS # 0.2 10*3/uL (0.0-0.4); EOS % 1.7 % (1.0-4.0); HEMATOCRIT 42.5 % (37.0-47.0); LYMPH # 2.9 10*3/uL (1.3-4.4); MEAN CELL VOLUME 95.9 fl (81.0-99.0); MEAN CORPUSCULAR HGB CONC 31.3 g/dl (33.0-37.0); MEAN PLATELET VOLUME 12.5 fl (9.6-12.3); MONO # 0.6 10*3/uL (0.1-1.0); MONO % 6.5 % (3.0-9.0); NEUT # 5.4 10*3/uL (2.3-7.9); NEUT % 59.2 % (47.0-73.0); PLATELET COUNT AUTOMATED 168 10*3/uL (130-400); RED BLOOD COUNT 4.43 10*6/uL (4.10-5.10); RED CELL DISTRI WIDTH 13.6 % (0-14.5); WHITE BLOOD COUNT 9.1 10*3/uL (4.8-10.8)
[2021-09-25] VITALS: BP 106/77
[2021-09-25 08:00] VITALS: BP 104/48
[2021-09-25 12:00] VITALS: BP 137/60
== END 2021-09-25 14:05 | disposition home or self-care (01) | DRG 189 ==
LOC: ED 21:22 → 5E 09-24 03:51 → EDHOLD 09-24 03:51 → 5E 09-24 07:12
PROVIDERS: Emergency Medicine; Internal Medicine; ADMIT Student in an Organized Health Care Education/Training Program; ATTEND Student in an Organized Health Care Education/Training Program
DX: J96.01 Acute respiratory failure with hypoxia (principal); I13.0 Hypertensive heart and chronic kidney disease with heart failure and stage 1 through stage 4 chronic kidney disease, or unspecified chronic kidney disease; I50.32 Chronic diastolic (congestive) heart failure; Z68.44 Body mass index [BMI] 60.0-69.9, adult; R07.89 Other chest pain; E11.22 Type 2 diabetes mellitus with diabetic chronic kidney disease; E11.65 Type 2 diabetes mellitus with hyperglycemia; N18.32 Chronic kidney disease, stage 3b; I25.10 Atherosclerotic heart disease of native coronary artery without angina pectoris; E66.01 Morbid (severe) obesity due to excess calories; F41.1 Generalized anxiety disorder; K21.9 Gastro-esophageal reflux disease without esophagitis; Z79.4 Long term (current) use of insulin; Z88.0 Allergy status to penicillin; Z88.1 Allergy status to other antibiotic agents; Z88.2 Allergy status to sulfonamides; Z88.8 Allergy status to other drugs, medicaments and biological substances; Z79.899 Other long term (current) drug therapy; Z82.0 Family history of epilepsy and other diseases of the nervous system; Z95.5 Presence of coronary angioplasty implant and graft

== ENCOUNTER → 2021-10-01 | Outpatient (CLI) | payer OTHER, MEDICAID ==
[~2021-10-01] MED LIST changes: +LASIX20 MG PO; +NEURONTIN300 MG PO
== END | disposition home or self-care (01) ==
LOC: RESCLI 00:21
PROVIDERS: ATTEND Internal Medicine Nephrology
DX: M62.838 Other muscle spasm (principal); I13.10 Hypertensive heart and chronic kidney disease without heart failure, with stage 1 through stage 4 chronic kidney disease, or unspecified chronic kidney disease; E11.22 Type 2 diabetes mellitus with diabetic chronic kidney disease; E66.9 Obesity, unspecified; E11.65 Type 2 diabetes mellitus with hyperglycemia; Z78.0 Asymptomatic menopausal state; E78.2 Mixed hyperlipidemia; K59.00 Constipation, unspecified; Z79.899 Other long term (current) drug therapy; I25.10 Atherosclerotic heart disease of native coronary artery without angina pectoris; I47.1 Supraventricular tachycardia; F41.9 Anxiety disorder, unspecified; G89.29 Other chronic pain; N18.30 Chronic kidney disease, stage 3 unspecified; Z88.8 Allergy status to other drugs, medicaments and biological substances; Z88.0 Allergy status to penicillin

== ENCOUNTER 2021-12-02 10:41 | Emergency (ER) | payer OTHER, MEDICAID ==
[~2021-12-02] VITALS: Wt 183.7 kg
[2021-12-02 11:23] LABS: BASO % 0.4 % (0.0-1.0); EOS # 0.1 10*3/uL (0.0-0.4); EOS % 1.9 % (1.0-4.0); HEMATOCRIT 42.3 % (37.0-47.0); LYMPH # 2.1 10*3/uL (1.3-4.4); MEAN CELL VOLUME 94.4 fl (81.0-99.0); MEAN CORPUSCULAR HGB 30.4 pg (27.0-31.0); MEAN CORPUSCULAR HGB CONC 32.2 g/dl (33.0-37.0); MEAN PLATELET VOLUME 11.7 fl (9.6-12.3); MONO # 0.6 10*3/uL (0.1-1.0); MONO % 8.2 % (3.0-9.0); NEUT % 58.4 % (47.0-73.0); PLATELET COUNT AUTOMATED 162 10*3/uL (130-400); RED BLOOD COUNT 4.48 10*6/uL (4.10-5.10); RED CELL DISTRI WIDTH 13.3 % (0-14.5); WHITE BLOOD COUNT 6.8 10*3/uL (4.8-10.8)
[2021-12-02 11:40] LABS: CREATININE 1.33 mg/dL (0.55-1.02); POTASSIUM 4.3 mmol/L (3.5-5.1); TOTAL PROTEIN 6.6 gm/dL (6.4-8.2)
[2021-12-04] MEDS ORDERED: TOPAMAX25 M2 PO (07:40)
== END 2021-12-02 13:48 | disposition home or self-care (01) ==
LOC: ED 10:41
PROVIDERS: Emergency Medicine
DX: R07.89 Other chest pain (principal); R53.83 Other fatigue

== ENCOUNTER → 2021-12-24 | Outpatient (CLI) | payer OTHER, MEDICAID ==
[~2021-12-24] MED LIST changes: +TOPAMAX25 M2 PO
== END | disposition home or self-care (01) ==
LOC: RESCLI 07:38
PROVIDERS: ATTEND Internal Medicine Nephrology
DX: I11.9 Hypertensive heart disease without heart failure (principal); I25.10 Atherosclerotic heart disease of native coronary artery without angina pectoris; K59.00 Constipation, unspecified; E11.65 Type 2 diabetes mellitus with hyperglycemia; F41.9 Anxiety disorder, unspecified; M62.838 Other muscle spasm; G89.29 Other chronic pain; I47.1 Supraventricular tachycardia; Z78.0 Asymptomatic menopausal state; E78.2 Mixed hyperlipidemia; Z79.899 Other long term (current) drug therapy; Z79.82 Long term (current) use of aspirin; Z88.0 Allergy status to penicillin; Z88.8 Allergy status to other drugs, medicaments and biological substances

== ENCOUNTER 2022-02-16 15:52 | Emergency (ER) | payer OTHER, MEDICAID ==
[~2022-02-16] VITALS: Ht 170.1 cm; Wt 181.4 kg
[2022-02-16 16:37] LABS: BASO # 0.1 10*3/uL (0.0-0.1); BASO % 0.7 % (0.0-1.0); EOS # 0.1 10*3/uL (0.0-0.4); EOS % 1.6 % (1.0-4.0); HEMATOCRIT 42.9 % (37.0-47.0); LYMPH # 2.1 10*3/uL (1.3-4.4); LYMPH % 30.9 % (27.0-41.0); MEAN CELL VOLUME 95.1 fl (81.0-99.0); MEAN CORPUSCULAR HGB CONC 32.6 g/dl (33.0-37.0); MEAN PLATELET VOLUME 12.1 fl (9.6-12.3); MONO # 0.4 10*3/uL (0.1-1.0); MONO % 6.4 % (3.0-9.0); NEUT # 4.2 10*3/uL (2.3-7.9); NEUT % 60.3 % (47.0-73.0); PLATELET COUNT AUTOMATED 162 10*3/uL (130-400); RED BLOOD COUNT 4.51 10*6/uL (4.10-5.10); RED CELL DISTRI WIDTH 13.2 % (0-14.5); WHITE BLOOD COUNT 6.9 10*3/uL (4.8-10.8)
[2022-02-16 16:55] LABS: ACT PARTIAL THROMBO TIME 27.8 SECONDS (20.0-32.1); CREATININE 1.34 mg/dL (0.55-1.02); POTASSIUM 3.9 mmol/L (3.5-5.1); TOTAL PROTEIN 6.6 gm/dL (6.4-8.2)
[2022-02-16] MEDS ORDERED: DOXYCYCLINE HY100 M3 PO (23:33)
== END 2022-02-16 19:33 | disposition home or self-care (01) ==
LOC: ED 15:52
PROVIDERS: Emergency Medicine
DX: R06.02 Shortness of breath (principal); I25.10 Atherosclerotic heart disease of native coronary artery without angina pectoris; E11.9 Type 2 diabetes mellitus without complications; K21.9 Gastro-esophageal reflux disease without esophagitis; E78.5 Hyperlipidemia, unspecified; I10 Essential (primary) hypertension; E66.01 Morbid (severe) obesity due to excess calories; M19.90 Unspecified osteoarthritis, unspecified site; Z88.0 Allergy status to penicillin; Z88.1 Allergy status to other antibiotic agents; Z88.8 Allergy status to other drugs, medicaments and biological substances; Z79.899 Other long term (current) drug therapy; Z98.890 Other specified postprocedural states; Z98.51 Tubal ligation status

== ENCOUNTER 2022-02-16 20:45 | Emergency (ER) | payer OTHER, MEDICAID ==
[2022-02-16] MEDS ORDERED: DOXYCYCLINE HY100 M3 PO (23:33)
== END 2022-02-17 00:23 | disposition home or self-care (01) ==
LOC: ED 20:45
DX: E86.0 Dehydration (principal); R91.8 Other nonspecific abnormal finding of lung field; Z88.0 Allergy status to penicillin; Z88.1 Allergy status to other antibiotic agents; Z88.8 Allergy status to other drugs, medicaments and biological substances; Z79.899 Other long term (current) drug therapy; Z98.890 Other specified postprocedural states; Z98.51 Tubal ligation status

== ENCOUNTER 2022-04-05 21:57 | Emergency (ER) | payer OTHER, MEDICAID ==
[~2022-04-05] VITALS: Ht 165.1 cm; Wt 136.1 kg
[~2022-04-05 21:57] MED LIST changes: +DOXYCYCLINE HY100 M3 PO
[2022-04-05 22:29] LABS: BASO % 0.5 % (0.0-1.0); EOS # 0.1 10*3/uL (0.0-0.4); EOS % 1.3 % (1.0-4.0); HEMATOCRIT 44.4 % (37.0-47.0); LYMPH # 2.2 10*3/uL (1.3-4.4); LYMPH % 28.5 % (27.0-41.0); MEAN CELL VOLUME 96.1 fl (81.0-99.0); MEAN CORPUSCULAR HGB 31.4 pg (27.0-31.0); MEAN CORPUSCULAR HGB CONC 32.7 g/dl (33.0-37.0); MEAN PLATELET VOLUME 11.8 fl (9.6-12.3); MONO # 0.6 10*3/uL (0.1-1.0); MONO % 7.3 % (3.0-9.0); NEUT # 4.9 10*3/uL (2.3-7.9); NEUT % 62.1 % (47.0-73.0); PLATELET COUNT AUTOMATED 185 10*3/uL (130-400); RED BLOOD COUNT 4.62 10*6/uL (4.10-5.10); RED CELL DISTRI WIDTH 13.1 % (0-14.5); WHITE BLOOD COUNT 7.8 10*3/uL (4.8-10.8)
[2022-04-05 22:40] LABS: ACT PARTIAL THROMBO TIME 27.5 SECONDS (20.0-32.1)
[2022-04-05 22:52] LABS: CREATININE 1.7 mg/dL (0.55-1.02)
== END 2022-04-06 02:12 | disposition home or self-care (01) ==
LOC: ED 21:57
PROVIDERS: Internal Medicine
DX: R07.89 Other chest pain (principal); N17.9 Acute kidney failure, unspecified; N18.9 Chronic kidney disease, unspecified; E11.65 Type 2 diabetes mellitus with hyperglycemia; R10.13 Epigastric pain; I25.2 Old myocardial infarction; E66.9 Obesity, unspecified; Z79.82 Long term (current) use of aspirin; Z88.0 Allergy status to penicillin; Z88.1 Allergy status to other antibiotic agents; Z88.2 Allergy status to sulfonamides; Z88.8 Allergy status to other drugs, medicaments and biological substances; Z79.899 Other long term (current) drug therapy; Z79.4 Long term (current) use of insulin; Z98.890 Other specified postprocedural states; Z98.61 Coronary angioplasty status; Z68.30 Body mass index [BMI] 30.0-30.9, adult

== ENCOUNTER → 2022-07-19 | Outpatient (CLI) | payer OTHER, MEDICAID | END | disposition home or self-care (01) | LOC: US 08:08 | PROVIDERS: ATTEND Internal Medicine | DX: I70.202 Unspecified atherosclerosis of native arteries of extremities, left leg (principal); M79.671 Pain in right foot; M79.672 Pain in left foot ==

== ENCOUNTER → 2022-08-07 | Outpatient (CLI) | payer OTHER, MEDICAID | END | disposition home or self-care (01) | LOC: CARD 02:26 | PROVIDERS: ATTEND Internal Medicine Cardiovascular Disease | DX: I51.7 Cardiomegaly (principal); I35.0 Nonrheumatic aortic (valve) stenosis ==

== ENCOUNTER → 2022-08-16 | Outpatient (CLI) | payer OTHER, MEDICAID | END | disposition home or self-care (01) | LOC: CT 00:55 | PROVIDERS: ATTEND Internal Medicine | DX: I70.203 Unspecified atherosclerosis of native arteries of extremities, bilateral legs (principal); K76.0 Fatty (change of) liver, not elsewhere classified; I10 Essential (primary) hypertension ==

== ENCOUNTER 2022-11-09 00:06 | Emergency (ER) | payer OTHER, MEDICAID ==
[~2022-11-09] VITALS: Ht 167.6 cm; Wt 181.4 kg
[2022-11-09] MEDS ORDERED: CLINDAMYCIN HC300 MG PO (00:38)
== END 2022-11-09 00:45 | disposition home or self-care (01) ==
LOC: ED 00:06
DX: L03.113 Cellulitis of right upper limb (principal); I10 Essential (primary) hypertension; Z86.73 Personal history of transient ischemic attack (TIA), and cerebral infarction without residual deficits; E11.9 Type 2 diabetes mellitus without complications; I25.2 Old myocardial infarction; E78.00 Pure hypercholesterolemia, unspecified; Z88.0 Allergy status to penicillin; Z88.1 Allergy status to other antibiotic agents; Z88.2 Allergy status to sulfonamides; Z88.8 Allergy status to other drugs, medicaments and biological substances; Z98.51 Tubal ligation status; Z95.5 Presence of coronary angioplasty implant and graft

== ENCOUNTER 2023-01-09 20:13 | Emergency (ER) | payer OTHER, MEDICAID ==
[~2023-01-09] VITALS: Ht 167.6 cm; Wt 186.4 kg
[~2023-01-09 20:13] MED LIST changes: +CLINDAMYCIN HC300 MG PO
[2023-01-09] MEDS ORDERED: TOPAMAX100 M1 PO (20:25)
[2023-01-09] MEDS ORDERED: GLUMETZA500 MG PO (20:25)
[2023-01-09 21:00] LABS: BASO % 0.6 % (0.0-1.0); EOS # 0.1 10*3/uL (0.0-0.4); EOS % 1.7 % (1.0-4.0); LYMPH # 2.2 10*3/uL (1.3-4.4); LYMPH % 30.3 % (27.0-41.0); MEAN CELL VOLUME 98.4 fl (81.0-99.0); MEAN CORPUSCULAR HGB 31.4 pg (27.0-31.0); MEAN CORPUSCULAR HGB CONC 31.9 g/dl (33.0-37.0); MEAN PLATELET VOLUME 11.9 fl (9.6-12.3); MONO # 0.5 10*3/uL (0.1-1.0); MONO % 7.2 % (3.0-9.0); NEUT # 4.3 10*3/uL (2.3-7.9); NEUT % 59.9 % (47.0-73.0); PLATELET COUNT AUTOMATED 176 10*3/uL (130-400); RED BLOOD COUNT 4.37 10*6/uL (4.10-5.10); RED CELL DISTRI WIDTH 12.6 % (0-14.5); WHITE BLOOD COUNT 7.2 10*3/uL (4.8-10.8)
[2023-01-09 21:44] LABS: POTASSIUM 4.2 mmol/L (3.4-5.1)
[2023-01-09 21:46] LABS: THYROID STIM HORMONE (HS) 1.6 uIU/ml (0.550-4.780)
== END 2023-01-09 22:20 | disposition home or self-care (01) ==
LOC: ED 20:13
PROVIDERS: Student in an Organized Health Care Education/Training Program
DX: R53.1 Weakness (principal); R25.1 Tremor, unspecified; R20.0 Anesthesia of skin; R53.83 Other fatigue; Z88.0 Allergy status to penicillin; Z88.1 Allergy status to other antibiotic agents; Z88.2 Allergy status to sulfonamides; Z79.82 Long term (current) use of aspirin; Z79.4 Long term (current) use of insulin; Z98.890 Other specified postprocedural states; Z95.5 Presence of coronary angioplasty implant and graft

== ENCOUNTER 2023-02-01 20:33 | Emergency (ER) | payer OTHER, MEDICAID ==
[~2023-02-01] VITALS: Ht 170.1 cm; Wt 186.4 kg
[~2023-02-01 20:33] MED LIST changes: +GLUMETZA500 MG PO; +TOPAMAX100 M1 PO
[2023-02-01 21:28] LABS: BASO % 0.4 % (0.0-1.0); EOS # 0.1 10*3/uL (0.0-0.4); EOS % 1.5 % (1.0-4.0); HEMATOCRIT 41.3 % (37.0-47.0); LYMPH # 1.8 10*3/uL (1.3-4.4); LYMPH % 26.5 % (27.0-41.0); MEAN CELL VOLUME 98.6 fl (81.0-99.0); MEAN CORPUSCULAR HGB CONC 31.5 g/dl (33.0-37.0); MONO # 0.5 10*3/uL (0.1-1.0); MONO % 7.1 % (3.0-9.0); NEUT # 4.4 10*3/uL (2.3-7.9); NEUT % 64.1 % (47.0-73.0); PLATELET COUNT AUTOMATED 160 10*3/uL (130-400); RED BLOOD COUNT 4.19 10*6/uL (4.10-5.10); RED CELL DISTRI WIDTH 12.8 % (0-14.5); WHITE BLOOD COUNT 6.9 10*3/uL (4.8-10.8)
[2023-02-01 21:53] LABS: TOTAL PROTEIN 6.6 gm/dL (6.0-8.0)
== END 2023-02-01 23:17 | disposition home or self-care (01) ==
LOC: ED 20:33
PROVIDERS: Internal Medicine
DX: R07.89 Other chest pain (principal); I12.9 Hypertensive chronic kidney disease with stage 1 through stage 4 chronic kidney disease, or unspecified chronic kidney disease; E11.22 Type 2 diabetes mellitus with diabetic chronic kidney disease; I25.2 Old myocardial infarction; E78.00 Pure hypercholesterolemia, unspecified; Z86.73 Personal history of transient ischemic attack (TIA), and cerebral infarction without residual deficits; N18.32 Chronic kidney disease, stage 3b; Z88.0 Allergy status to penicillin; Z88.1 Allergy status to other antibiotic agents; Z88.2 Allergy status to sulfonamides; Z88.8 Allergy status to other drugs, medicaments and biological substances; Z98.890 Other specified postprocedural states; Z95.5 Presence of coronary angioplasty implant and graft; Z98.51 Tubal ligation status

== ENCOUNTER → 2023-03-07 | Outpatient (CLI) | payer OTHER, MEDICAID ==
[2023-03-07 16:05] LABS: BILIRUBIN Negative (Negative); BLOOD Negative (Negative); CLARITY Clear (Clear); COLOR Yellow (Yellow); GLUCOSE Negative (Negative); KETONE Negative (Negative); LEUKO ESTERASE Negative (Negative); NITRITE Negative (Negative); UROBILINOGEN 0.2 E.U./dl (0.0-1.0)
[2023-03-07 16:19] LABS: BACTERIA TRACE; RBC 0-2 rbc/hpf (0-2); WBC 0-2 wbc/hpf (0-5)
[2023-03-07 16:30] LABS: TOTAL PROTEIN 6.8 gm/dL (6.0-8.0)
[2023-03-07 16:33] LABS: VITAMIN D, 25-HYDROXY 45.7 ng/mL (30-100)
== END | disposition home or self-care (01) ==
LOC: CT 03-06 13:00 → LAB 01:01 → CT 16:00
PROVIDERS: ATTEND Internal Medicine
DX: G31.9 Degenerative disease of nervous system, unspecified (principal); I67.82 Cerebral ischemia; R41.3 Other amnesia

== ENCOUNTER → 2023-07-22 | Outpatient (CLI) | payer OTHER, MEDICAID ==
[2023-07-22 11:16] LABS: POTASSIUM 4.7 mmol/L (3.4-5.1); TOTAL PROTEIN 6.3 gm/dL (6.0-8.0)
[2023-07-22 11:52] LABS: VITAMIN D, 25-HYDROXY 40.8 ng/mL (30-100)
== END | disposition home or self-care (01) ==
LOC: LAB 01:14
PROVIDERS: ATTEND Internal Medicine
DX: E11.65 Type 2 diabetes mellitus with hyperglycemia (principal); E55.9 Vitamin D deficiency, unspecified; E53.8 Deficiency of other specified B group vitamins; E78.5 Hyperlipidemia, unspecified; E34.9 Endocrine disorder, unspecified; Z79.899 Other long term (current) drug therapy

== ENCOUNTER → 2023-10-29 | Outpatient (CLI) | payer OTHER, MEDICAID ==
[2023-10-29 18:14] LABS: BILIRUBIN Negative (Negative); BLOOD Negative (Negative); CLARITY Clear (Clear); COLOR Yellow (Yellow); GLUCOSE Negative (Negative); KETONE Negative (Negative); NITRITE Negative (Negative); UROBILINOGEN 0.2 E.U./dl (0.0-1.0)
[2023-10-29 18:15] LABS: LEUKO ESTERASE Negative (Negative)
[2023-10-29 18:24] LABS: POTASSIUM 4.2 mmol/L (3.4-5.1); TOTAL PROTEIN 6.9 gm/dL (6.0-8.0)
[2023-10-29 18:27] LABS: VITAMIN D, 25-HYDROXY 41.6 ng/mL (30-100)
[2023-10-29 18:30] LABS: BACTERIA TRACE; EPITHELIAL CELLS 0-2; WBC 0-2 wbc/hpf (0-5)
[2023-10-29 18:33] LABS: TRIP PHOS CRYSTALS TRACE
== END | disposition home or self-care (01) ==
LOC: LAB 17:23
PROVIDERS: ATTEND Internal Medicine
DX: E11.65 Type 2 diabetes mellitus with hyperglycemia (principal); E53.8 Deficiency of other specified B group vitamins; E55.9 Vitamin D deficiency, unspecified; E78.5 Hyperlipidemia, unspecified; E34.9 Endocrine disorder, unspecified; Z79.899 Other long term (current) drug therapy

== ENCOUNTER 2024-05-03 18:07 | Emergency (ER) | payer OTHER, MEDICAID ==
[~2024-05-03] VITALS: Ht 167.6 cm; Wt 181.4 kg
[2024-05-03] MEDS ORDERED: Ondansetron Hydrochloride 4 MG TAB SL ONE (22:25)
[2024-05-03] MEDS ORDERED: Acetaminophen/Hydrocodone 5 MG/325 MG TABLET PO ONE (22:25)
== END 2024-05-03 22:42 | disposition home or self-care (01) ==
LOC: ED 18:07
DX: S50.11XA Contusion of right forearm, initial encounter (principal); S80.01XA Contusion of right knee, initial encounter; S00.93XA Contusion of unspecified part of head, initial encounter; W18.09XA Striking against other object with subsequent fall, initial encounter; Y93.01 Activity, walking, marching and hiking; Y92.009 Unspecified place in unspecified non-institutional (private) residence as the place of occurrence of the external cause; Y99.8 Other external cause status; M54.2 Cervicalgia; Z88.0 Allergy status to penicillin; Z88.1 Allergy status to other antibiotic agents; Z88.2 Allergy status to sulfonamides; Z88.8 Allergy status to other drugs, medicaments and biological substances; Z98.890 Other specified postprocedural states; Z95.5 Presence of coronary angioplasty implant and graft; Z98.51 Tubal ligation status; I10 Essential (primary) hypertension; Z86.73 Personal history of transient ischemic attack (TIA), and cerebral infarction without residual deficits; E11.9 Type 2 diabetes mellitus without complications; I25.2 Old myocardial infarction

== ENCOUNTER 2024-07-10 17:59 | Emergency (ER) | payer OTHER, MEDICAID ==
[~2024-07-10] VITALS: Wt 189.1 kg
[2024-07-10] MEDS ORDERED: Acetaminophen/Hydrocodone 5 MG/325 MG TABLET PO ONE (18:25)
[2024-07-10] MEDS ORDERED: Cyclobenzaprine Hydrochlorid 10 MG TAB PO ONE (18:25)
[2024-07-10 18:43] LABS: BASO # 0.1 10*3/uL (0.0-0.1); BASO % 0.8 % (0.0-1.0); EOS # 0.1 10*3/uL (0.0-0.4); EOS % 1.2 % (1.0-4.0); HEMATOCRIT 41.3 % (37.0-47.0); MEAN CELL VOLUME 96.3 fl (81.0-99.0); MEAN CORPUSCULAR HGB 30.8 pg (27.0-31.0); MEAN PLATELET VOLUME 11.9 fl (9.6-12.3); MONO # 0.5 10*3/uL (0.1-1.0); MONO % 6.6 % (3.0-9.0); NEUT # 4.9 10*3/uL (2.3-7.9); NEUT % 63.9 % (47.0-73.0); PLATELET COUNT AUTOMATED 187 10*3/uL (130-400); RED BLOOD COUNT 4.29 10*6/uL (4.10-5.10); RED CELL DISTRI WIDTH 12.9 % (0-14.5); WHITE BLOOD COUNT 7.7 10*3/uL (4.8-10.8)
[2024-07-10 19:15] LABS: POTASSIUM 4.2 mmol/L (3.4-5.1)
[2024-07-10] MEDS ORDERED: HYDROCODONE-AC1 EAC1 PO (20:15)
== END 2024-07-10 20:35 | disposition home or self-care (01) ==
LOC: ED 17:59
PROVIDERS: Physician Assistant Medical
DX: R07.89 Other chest pain (principal); I50.9 Heart failure, unspecified; I25.10 Atherosclerotic heart disease of native coronary artery without angina pectoris; K21.9 Gastro-esophageal reflux disease without esophagitis; F41.9 Anxiety disorder, unspecified; I25.2 Old myocardial infarction; E11.22 Type 2 diabetes mellitus with diabetic chronic kidney disease; I13.0 Hypertensive heart and chronic kidney disease with heart failure and stage 1 through stage 4 chronic kidney disease, or unspecified chronic kidney disease; N18.9 Chronic kidney disease, unspecified; Z88.0 Allergy status to penicillin; Z88.1 Allergy status to other antibiotic agents; Z88.2 Allergy status to sulfonamides; Z88.8 Allergy status to other drugs, medicaments and biological substances; Z95.5 Presence of coronary angioplasty implant and graft; Z86.73 Personal history of transient ischemic attack (TIA), and cerebral infarction without residual deficits; Z98.890 Other specified postprocedural states

== ENCOUNTER 2024-09-16 12:22 | Emergency (ER) | payer OTHER, MEDICAID ==
[~2024-09-16] VITALS: Ht 165.1 cm; Wt 188.2 kg
[~2024-09-16 12:22] MED LIST changes: +HYDROCODONE-AC1 EAC1 PO
[2024-09-16 15:26] LABS: BASO % 0.5 % (0.0-1.0); EOS # 0.1 10*3/uL (0.0-0.4); EOS % 1.9 % (1.0-4.0); HEMATOCRIT 40.2 % (37.0-47.0); MEAN CELL VOLUME 97.1 fl (81.0-99.0); MEAN CORPUSCULAR HGB 30.4 pg (27.0-31.0); MEAN CORPUSCULAR HGB CONC 31.3 g/dl (33.0-37.0); MEAN PLATELET VOLUME 11.4 fl (9.6-12.3); MONO # 0.5 10*3/uL (0.1-1.0); MONO % 6.2 % (3.0-9.0); NEUT # 4.7 10*3/uL (2.3-7.9); PLATELET COUNT AUTOMATED 168 10*3/uL (130-400); RED BLOOD COUNT 4.14 10*6/uL (4.10-5.10); RED CELL DISTRI WIDTH 13.2 % (0-14.5); WHITE BLOOD COUNT 7.3 10*3/uL (4.8-10.8)
[2024-09-16 15:39] LABS: BILIRUBIN Negative (Negative); BLOOD Trace-Lysed (Negative); CLARITY Clear (Clear); COLOR Yellow (Yellow); GLUCOSE Negative (Negative); KETONE Negative (Negative); LEUKO ESTERASE Negative (Negative); NITRITE Negative (Negative); SPECIFIC GRAVITY 1.015 (1.001-1.030); UROBILINOGEN 0.2 E.U./dl (0.0-1.0)
[2024-09-16 15:46] LABS: POTASSIUM 4.9 mmol/L (3.4-5.1)
[2024-09-16 15:50] LABS: MUCOUS TRACE; WBC 0-2 wbc/hpf (0-5)
[2024-09-16] MEDS ORDERED: SODIUM CHLORIDE 0.9% 500 ML IV ONE (15:55)
== END 2024-09-16 19:01 | disposition home or self-care (01) ==
LOC: ED 12:22
PROVIDERS: Internal Medicine
DX: R79.89 Other specified abnormal findings of blood chemistry (principal); Z88.0 Allergy status to penicillin; Z88.1 Allergy status to other antibiotic agents; Z88.8 Allergy status to other drugs, medicaments and biological substances; Z88.2 Allergy status to sulfonamides; Z79.899 Other long term (current) drug therapy; Z79.82 Long term (current) use of aspirin; Z79.4 Long term (current) use of insulin; Z79.84 Long term (current) use of oral hypoglycemic drugs; Z98.890 Other specified postprocedural states

== ENCOUNTER 2024-10-27 16:50 | Emergency (ER) | payer OTHER, MEDICAID ==
[~2024-10-27] VITALS: Ht 167.6 cm; Wt 181.4 kg
[2024-10-27 17:32] LABS: BASO % 0.4 % (0.0-1.0); EOS # 0.1 10*3/uL (0.0-0.4); EOS % 1.4 % (1.0-4.0); MEAN CELL VOLUME 96.6 fl (81.0-99.0); MEAN CORPUSCULAR HGB 30.9 pg (27.0-31.0); MEAN PLATELET VOLUME 11.5 fl (9.6-12.3); MONO # 0.6 10*3/uL (0.1-1.0); MONO % 8.1 % (3.0-9.0); NEUT % 64.8 % (47.0-73.0); PLATELET COUNT AUTOMATED 162 10*3/uL (130-400); RED BLOOD COUNT 4.14 10*6/uL (4.10-5.10); RED CELL DISTRI WIDTH 13.1 % (0-14.5); WHITE BLOOD COUNT 7.7 10*3/uL (4.8-10.8)
[2024-10-27 17:43] LABS: ACT PARTIAL THROMBO TIME 26.8 SECONDS (20.0-32.1)
[2024-10-27 17:55] LABS: ALKALINE PHOSPHATASE 68 U/L (46-116); BUN 26 mg/dl (9-23); CHLORIDE 102 mmol/L (98-107); CPK 40 U/L (34-171); LIPASE 26 U/L (12-53); POTASSIUM 4.3 mmol/L (3.4-5.1); SGPT/ALT 12 U/L (5-49); TOTAL PROTEIN 6.4 gm/dL (6.0-8.0)
[2024-10-27] MEDS ORDERED: ASPIRIN, CHEWABLE 81 MG TAB PO ONE (18:25)
[2024-10-27 18:32] LABS: BILIRUBIN Negative (Negative); BLOOD Negative (Negative); CLARITY Cloudy (Clear); COLOR Yellow (Yellow); GLUCOSE Negative (Negative); KETONE Negative (Negative); LEUKO ESTERASE Negative (Negative); NITRITE Negative (Negative); PH 5.5 (4.5-8.0); UROBILINOGEN 0.2 E.U./dl (0.0-1.0)
[2024-10-27 18:43] LABS: BACTERIA 2+
== END 2024-10-27 18:40 | disposition home or self-care (01) ==
LOC: ED 16:50
PROVIDERS: Emergency Medicine
DX: R60.1 Generalized edema (principal); I10 Essential (primary) hypertension; E11.9 Type 2 diabetes mellitus without complications; Z20.822 Contact with and (suspected) exposure to COVID-19; Z86.73 Personal history of transient ischemic attack (TIA), and cerebral infarction without residual deficits; Z79.899 Other long term (current) drug therapy; Z88.0 Allergy status to penicillin; Z88.1 Allergy status to other antibiotic agents; Z88.2 Allergy status to sulfonamides; Z88.8 Allergy status to other drugs, medicaments and biological substances; Z98.890 Other specified postprocedural states